=== PATIENT | male | born 1955 | race Caucasian/White ===

== ENCOUNTER 2020-05-05 11:11 | Emergency (ER) | payer BC ==
[2020-05-05] MEDS ORDERED: Ketorolac 30 MG/ML SDV IVPUSH ONE (11:37)
[2020-05-05] MEDS ORDERED: Ondansetron 4 MG/2 ML SDV IVPUSH ONE (11:37)
[2020-05-05] MEDS ORDERED: HYDROmorphone 0.5 MG/0.5 ML Syringe IVPUSH ONE (11:37)
[2020-05-05] MEDS ORDERED: Sodium Chloride 0.9% 10 ML Syringe FLUSH PRN (11:38)
[2020-05-05] MEDS ORDERED: Sodium Chloride 0.9% 1,000 ML IV SCH (11:45)
--- NOTE | 2020-05-05 11:59 | EDM.PDOC ---
ED HPI GENERAL MEDICAL PROBLEM - General Chief Complaint: Flank Pain Stated Complaint: KIDNEY STONE Time Seen by Provider: 05/05/20 11:22 Source of Information: Reports: Patient History Limitations: Reports: No Limitations - History of Present Illness INITIAL COMMENTS - FREE TEXT/NARRATIVE: Patient is a 65-year-old male who presents to the emergency department with complaints of right-sided groin pain and hematuria. He states symptoms began on Monday with right flank pain. He has been managing his symptoms over the weekend, however today they have worsened significantly. He developed blood in his urine yesterday. Patient has a history of kidney stones and states this would be his 18th stone. He has had them analyzed in the past and been told they are made of calcium oxalate. He has been able to pass a number of them on his own, however has also required lithotripsy in the past. His urologist was Dr. Sexton, however states his last lithotripsy was done at [facility] in [place]. He denies any fever, chills, or diarrhea. He has had some nausea and vomiting this morning. States that this does feel like his typical kidney stone, however pain is much more severe. Right Lower Groin Pain Score (Numeric/FACES): 9 - Related Data Allergies Allergy/AdvReac Type Severity Reaction Status Date / Time Penicillins Allergy Severe Rash Verified 05/05/20 11:25 Home Meds: Home Meds Aspirin [Kwame Chewable] 81 mg PO 08/31/14 [History] Acetaminophen/oxyCODONE [Percocet 325-5 MG] 1 - 2 tab PO Q4HR PRN #20 tab 05/05/20 [Rx] Allopurinol [Zyloprim] 300 mg PO DAILY 05/05/20 [History] Ondansetron [Zofran ODT] 4 mg PO Q6H PRN #10 tab.dis 05/05/20 [Rx] Rosuvastatin Calcium [Crestor] 0 mg PO DAILY 05/05/20 [History] Past Medical History Cardiovascular History: Reports: [place] Other Cardiovascular History: abblation Respiratory History: Reports: Bronchitis, Recurrent, Pneumonia, Recurrent Other Respiratory History: 50% lung capacity Genitourinary History: Reports: Renal Calculus Musculoskeletal History: Reports: Back Pain, Chronic, Gout Endocrine/Metabolic History: Reports: Other (See Below) Other Endocrine/Metabolic History: borderline Social & Family History - Tobacco Use Smoking Status *Q: Never Smoker - Caffeine Use Caffeine Use: Reports: Coffee - Recreational Drug Use Recreational Drug Use: No ED ROS GENERAL - Review of Systems Review Of Systems: See Below Constitutional: Reports: No Symptoms. Denies: Fever, Chills, Weakness HEENT: Reports: No Symptoms Respiratory: Reports: No Symptoms Cardiovascular: Reports: No Symptoms Endocrine: Reports: No Symptoms GI/Abdominal: Reports: Nausea, Vomiting. Denies: Abdominal Pain, Diarrhea : Reports: No Symptoms, Flank Pain, Hematuria, Other (Right groin pain) Musculoskeletal: Reports: No Symptoms Skin: Reports: No Symptoms Neurological: Reports: No Symptoms Psychiatric: Reports: No Symptoms Hematologic/Lymphatic: Reports: No Symptoms Immunologic: Reports: No Symptoms ED EXAM, RENAL/ - Physical Exam Exam: See Below Exam Limited By: No Limitations General Appearance: Alert, WD/WN, Mild Distress Respiratory/Chest: No Respiratory Distress, Lungs Clear, Normal Breath Sounds, No Accessory Muscle Use, Chest Non-Tender Cardiovascular: Normal Peripheral Pulses, Regular Rate, Rhythm, No Edema, No Gallop, No JVD, No Murmur, No Rub Back Exam: Normal Inspection, Full Range of Motion, CVA Tenderness (R) Neurological: Alert, Oriented, CN II-XII Intact, Normal Cognition, Normal Gait, Normal Reflexes, No Motor/Sensory Deficits Psychiatric: Normal Affect, Normal Mood Skin Exam: Warm, Dry, Intact, Normal Color, No Rash Course - Vital Signs Last Recorded V/S: Last Vital Signs Temp 97.5 F 05/05/20 13:18 Pulse 74 05/05/20 13:18 Resp 16 05/05/20 13:18 BP 154/89 H 05/05/20 13:18 Pulse Ox 97 05/05/20 13:18 - Orders/Labs/Meds Orders: Active Orders 24 hr Category Date Time Status Peripheral IV Care [RC] . DIRECTED Care 05/05/20 11:39 Active Peripheral IV Insertion Adult [OM.PC] Stat Oth 05/05/20 11:38 Ordered Labs: Laboratory Tests 05/05/20 05/05/20 05/05/20 Range/Units 11:42 11:42 11:45 WBC 9.07 (4.23-9.07) K/mm3 RBC 5.13 (4.63-6.08) M/mm3 Hgb 16.0 (13.7-17.5) gm/dl Hct 48.9 (40.1-51.0) % MCV 95.3 H (79.0-92.2) fl MCH 31.2 (25.7-32.2) pg MCHC 32.7 (32.2-35.5) g/dl RDW Std Deviation 47.3 H (35.1-43.9) fL Plt Count 300 (163-337) K/mm3 MPV 10.0 (9.4-12.3) fl Neut % (Auto) 59.8 (34.0-67.9) % Lymph % (Auto) 24.4 (21.8-53.1) % [place] % (Auto) 11.7 (5.3-12.2) % Eos % (Auto) 3.4 (0.8-7.0) Baso % (Auto) 0.6 (0.1-1.2) % Neut # (Auto) 5.43 H (1.78-5.38) K/mm3 Lymph # (Auto) 2.21 (1.32-3.57) K/mm3 [place] # (Auto) 1.06 H (0.30-0.82) K/mm3 Eos # (Auto) 0.31 (0.04-0.54) K/mm3 Baso # (Auto) 0.05 (0.01-0.08) K/mm3 Sodium 141 (136-145) mEq/L Potassium 4.2 (3.5-5.1) mEq/L Chloride 104 (98-107) mEq/L Carbon Dioxide 27 (21-32) mEq/L Anion Gap 14.2 (5-15) BUN 12 (7-18) mg/dL Creatinine 1.0 (0.7-1.3) mg/dL Est Cr Clr Drug Dosing 82.99 mL/min Estimated GFR (MDRD) > 60 (>60) mL/min BUN/Creatinine Ratio 12.0 L (14-18) Glucose 102 (80-115) mg/dL Calcium 9.1 (8.5-10.1) mg/dL Total Bilirubin 0.7 (0.2-1.0) mg/dL AST 25 (15-37) U/L ALT 35 (16-63) U/L Alkaline Phosphatase 62 (46-116) U/L Total Protein 7.8 (6.4-8.2) g/dl Albumin 4.1 (3.4-5.0) g/dl Globulin 3.7 gm/dL Albumin/Globulin Ratio 1.1 (1-2) Urine Color Yellow (Yellow) Urine Appearance Clear (Clear) Urine pH 7.5 (5.0-8.0) Ur Specific [place] 1.025 (1.005-1.030) Urine Protein 1+ H (Negative) Urine Glucose (UA) Negative (Negative) Urine Ketones Negative (Negative) Urine Occult Blood 3+ H (Negative) Urine Nitrite Negative (Negative) Urine Bilirubin Negative (Negative) Urine Urobilinogen 0.2 (0.2-1.0) Ur Leukocyte Esterase Negative (Negative) Urine RBC 40-50 H (0-5) /hpf Urine WBC 0-5 (0-5) /hpf Ur Squamous Epith Cells 0-5 (0-5) /hpf Urine Bacteria Few (FEW) /hpf Urine Mucus Moderate H (FEW) /hpf Meds: Medications Discontinued Medications Generic Name Dose Route Start Last Admin Trade Name Freq PRN Reason Stop Dose Admin Hydromorphone HCl 0.5 mg 05/05/20 11:37 05/05/20 11:49 Dilaudid IVPUSH 05/05/20 11:38 0.5 mg ONETIME ONE Administration Sodium Chloride 1,000 mls @ 999 mls/hr 05/05/20 11:45 05/05/20 11:53 Normal Saline IV 999 mls/hr ASDIRECTED ALEKSANDRA Administration Ketorolac Tromethamine 30 mg 05/05/20 11:37 05/05/20 11:46 Toradol IVPUSH 05/05/20 11:38 30 mg ONETIME ONE Administration Ondansetron HCl 4 mg 05/05/20 11:37 05/05/20 11:45 Zofran IVPUSH 05/05/20 11:38 4 mg ONETIME ONE Administration Oxycodone/Acetaminophen 2 tab 05/05/20 12:55 05/05/20 13:09 Percocet 325-5 Mg PO 05/05/20 12:56 2 tab ONETIME ONE Administration Sodium Chloride 10 ml 05/05/20 11:38 05/05/20 11:55 Saline Flush FLUSH 10 ml ASDIRECTED PRN Administration Keep Vein Open - Re-Assessments/Exams Free Text/Narrative Re-Assessment/Exam: 05/05/20 12:55 Hematology was grossly unremarkable. Urinalysis showed 3+ occult blood, 40-50 RBCs, and moderate mucus. CT scan of the abdomen pelvis shows a 5.7 mm stone located at the UPJ causing dilated right renal pelvis. Patient is feeling better after the medications given. I will give him 2 Percocet now. A prescription will be written for Percocet and Zofran. He is going to call his urologist, Dr. Sexton this afternoon to get scheduled for an appointment with him. Recommended if his symptoms worsen, should return to the ER. Discharge instructions as documented. Departure - Departure Time of Disposition: 12:55 Disposition: Home, Self-Care 01 Condition: Good Clinical Impression: Ureteric stone - Discharge Information *PRESCRIPTION DRUG MONITORING PROGRAM REVIEWED*: Yes *COPY OF PRESCRIPTION DRUG MONITORING REPORT IN PATIENT PAZ: No Prescriptions: Acetaminophen/oxyCODONE [Percocet 325-5 MG] 1 - 2 tab PO Q4HR PRN #20 tab PRN Reason: Pain Ondansetron [Zofran ODT] 4 mg PO Q6H PRN #10 tab.dis PRN Reason: Nausea/Vomiting Instructions: Kidney Stones, [id number] Referrals: yT Ponce MD [Primary Care Provider] - Dwain Sexton MD [Physician] - Forms: ED Department Discharge Additional Instructions: You were seen in the emergency department today for 4-day history of right-sided flank and groin pain, as well as blood in your urine. Your work-up included blood work, urinalysis, and a CT scan your abdomen pelvis. Your blood work was found to be normal. As be expected, there was blood found in your urine however there was no signs of infection. CT scan does show a 5.7 mm stone located directly below the right kidney. While in the ER you received a liter of IV fluids, Zofran for nausea, and Dilaudid for pain. This did improve your pain and nausea. On discharge, he did receive 2 Percocets for pain. A prescription for Percocet and Zofran has been sent to [facility] in [place]. Recommend that you use [id number] Tylenol and ibuprofen. For pain not relieved by these, you may use Percocet. Do not drive or work for 12 hours after taking this medication as it can be sedating. Recommend that you call this afternoon t o set up a follow-up appointment with your urologist, Dr. Samantha Arroyo. Number to schedule with him as listed below. If you should experience any worsening symptoms, please not hesitate to return to the ER. Sepsis Event Note (ED) - Evaluation Sepsis Screening Result: No Definite Risk - My Orders Last 24 Hours: My Active Orders 05/05/20 11:38 Peripheral IV Insertion Adult [OM.PC] Stat 05/05/20 11:39 Peripheral IV Care [RC] . DIRECTED - Assessment/Plan Last 24 Hours: My Active Orders 05/05/20 11:38 Peripheral IV Insertion Adult [OM.PC] Stat 05/05/20 11:39 Peripheral IV Care [RC] . DIRECTED
--- NOTE | 2020-05-05 12:44 | CT ---
CT abdomen and pelvis Technique: Multiple axial sections were obtained from above the dome of the diaphragm inferiorly through the pubic symphysis. Intravenous contrast and oral contrast not utilized. Comparison: Prior CT abdomen and pelvis exam of 09/01/14. Findings: Right renal pelvis slightly dilated which is believed to be caused by a 5.7 mm stone located at the UPJ. Both kidneys show multiple nonobstructing calculi. Parapelvic cysts are noted within the left kidney. No other ureteral calculi are seen. Other findings: Extra pleural fat seen within the left lung base. Mild areas of scarring seen within both lung bases. Noncontrast appearance of the liver shows no focal abnormality. Spleen is normal. Gallbladder contains no calcified gallstones. Pancreas is unremarkable. Aorta shows no aneurysm. No retroperitoneal adenopathy or mesenteric abnormalities are seen. No pelvic mass or adenopathy is seen. No free fluid or inflammatory change is appreciated. Appendix is seen which is normal in size. Bone window settings were reviewed which shows scoliosis and mild scattered degenerative change throughout the spine. Impression: 1. 5.7 mm stone located at the UPJ causing dilated right renal pelvis. 2. Multiple nonobstructing calculi within both kidneys. 3. Other nonacute findings as noted above. Diagnostic code #3 Study was dictated in MDT
[2020-05-05] MEDS ORDERED: Acetaminophen/oxyCODONE 325-5 MG Tab PO ONE (12:55)
== END 2020-05-05 13:20 | disposition home or self-care (01) ==
LOC: JD.ED 11:11
DX: N20.1 Calculus of ureter (principal); Z87.442 Personal history of urinary calculi; M10.9 Gout, unspecified; Z88.0 Allergy status to penicillin; Z79.899 Other long term (current) drug therapy
CPT/HCPCS: 36415; 74176; 80053; 81001; 85025; 96361; 96374; 96375; 99284; A9270; J1170; J1885; J2405; J7030; 99283

== ENCOUNTER 2020-07-20 07:37 | Emergency (ER) | payer BC ==
[2020-07-20] MEDS ORDERED: Sodium Chloride 0.9% 10 ML Syringe FLUSH PRN (07:52)
[2020-07-20] MEDS ORDERED: Ondansetron 4 MG/2 ML SDV IVPUSH ONE (07:52)
[2020-07-20] MEDS ORDERED: Ketorolac 30 MG/ML SDV IVPUSH ONE (07:52)
[2020-07-20] MEDS ORDERED: HYDROmorphone 1 MG/ML Syringe IVPUSH ONE (07:53)
[2020-07-20] MEDS ORDERED: Sodium Chloride 0.9% 1,000 ML IV SCH (08:00)
--- NOTE | 2020-07-20 08:51 | EDM.PDOC ---
ED HPI GENERAL MEDICAL PROBLEM - General Chief Complaint: Flank Pain Stated Complaint: KIDNEY STONE Time Seen by Provider: 07/20/20 07:47 Source of Information: Reports: Patient History Limitations: Reports: No Limitations - History of Present Illness INITIAL COMMENTS - FREE TEXT/NARRATIVE: The patient presents with right flank pain. This started about 3am. He has a history of kidney stones and he sees Dr Sexton. He had a KUB done on 07/13 and it did show a stone. He has passed a few since April. He has some blood in his urine. He has nausea and vomiting. He has no fever, chills, cough, congestion, runny nose, chest pain or shortness of breath. Onset: Sudden Duration: Hour(s): (3am) Location: Reports: Abdomen, Back Quality: Reports: Sharp Severity: Severe Improves with: Reports: None Worsens with: Reports: None Associated Symptoms: Reports: Nausea/Vomiting. 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 - Related Data Allergies Allergy/AdvReac Type Severity Reaction Status Date / Time Penicillins Allergy Severe Rash Verified 05/05/20 11:25 Home Meds: Home Meds Aspirin [Kwame Chewable] 81 mg PO DAILY 08/31/14 [History] Acetaminophen/oxyCODONE [Percocet 325-5 MG] 1 - 2 tab PO Q4HR PRN #20 tab 05/05/20 [Rx] Allopurinol [Zyloprim] 300 mg PO DAILY 05/05/20 [History] Rosuvastatin Calcium [Crestor] 40 mg PO DAILY 05/05/20 [History] Ondansetron [Zofran ODT] 4 mg PO Q6H PRN #20 tab.dis 07/20/20 [Rx] oxyCODONE HCl/Acetaminophen [Percocet 5-325 mg Tablet] 1 - 2 each PO Q6HR PRN #20 tablet 07/20/20 [Rx] Past Medical History HEENT History: Reports: Impaired Vision Other HEENT History: wears glasses Cardiovascular History: Reports: Hypertension, [place] Other Cardiovascular History: abblation Respiratory History: Reports: Bronchitis, Recurrent, Pneumonia, Recurrent Other Respiratory History: 50% lung capacity Genitourinary History: Reports: Renal Calculus Musculoskeletal History: Reports: Back Pain, Chronic, Gout Endocrine/Metabolic History: Reports: Other (See Below) Other Endocrine/Metabolic History: borderline Social & Family History - Family History Family Medical History: Noncontributory - Tobacco Use Smoking Status *Q: Never Smoker - Caffeine Use Caffeine Use: Reports: Coffee ED ROS GENERAL - Review of Systems Review Of Systems: See Below Constitutional: Reports: No Symptoms HEENT: Reports: No Symptoms Respiratory: Reports: No Symptoms Cardiovascular: Reports: No Symptoms Endocrine: Reports: No Symptoms GI/Abdominal: Reports: Abdominal Pain, Nausea, Vomiting. Denies: Diarrhea : Reports: Flank Pain, Hematuria Musculoskeletal: Reports: Back Pain Skin: Reports: No Symptoms ED EXAM, RENAL/ - Physical Exam Exam: See Below Exam Limited By: No Limitations General Appearance: Alert, Mild Distress Ears: Normal External Exam Nose: Normal Inspection Head: Atraumatic, Normocephalic Neck: Normal Inspection Respiratory/Chest: No Respiratory Distress, Lungs Clear, Normal Breath Sounds Cardiovascular: Regular Rate, Rhythm, No Edema, No Murmur GI/Abdominal: Soft, Non-Tender, No Organomegaly, No Mass Back Exam: No: CVA Tenderness (R) Extremities: Normal Inspection Course - Vital Signs Last Recorded V/S: Last Vital Signs Temp 97.2 F 07/20/20 07:46 Pulse 80 07/20/20 07:46 Resp 20 07/20/20 07:46 BP 169/93 H 07/20/20 07:46 Pulse Ox 98 07/20/20 07:46 - Orders/Labs/Meds Orders: Active Orders 24 hr Category Date Time Status Peripheral IV Care [RC] . DIRECTED Care 07/20/20 07:52 Active Sodium Chloride 0.9% [Normal Saline] 1,000 ml Med 07/20/20 08:00 Active IV ASDIRECTED Sodium Chloride 0.9% [Saline Flush] Med 07/20/20 07:52 Active 10 ml FLUSH ASDIRECTED PRN ED Antiemetic Medication Reflex [OM.PC] Stat Oth 07/20/20 07:52 Ordered Peripheral IV Insertion Adult [OM.PC] Stat Oth 07/20/20 07:52 Ordered Medication Orders Sodium Chloride (Normal Saline) 1,000 mls @ 125 mls/hr IV ASDIRECTED ALEKSANDRA Last Admin: 07/20/20 08:00 Dose: 125 mls/hr Documented by: ABIGAIL Sodium Chloride (Saline Flush) 10 ml FLUSH ASDIRECTED PRN PRN Reason: Keep Vein Open Last Admin: 07/20/20 08:01 Dose: 10 ml Documented by: ABIGAIL Labs: Laboratory Tests 07/20/20 07/20/20 07/20/20 Range/Units 07:55 07:55 08:48 WBC 13.33 H (4.23-9.07) K/mm3 RBC 4.95 (4.63-6.08) M/mm3 Hgb 15.5 (13.7-17.5) gm/dl Hct 47.0 (40.1-51.0) % MCV 94.9 H (79.0-92.2) fl MCH 31.3 (25.7-32.2) pg MCHC 33.0 (32.2-35.5) g/dl RDW Std Deviation 46.4 H (35.1-43.9) fL Plt Count 296 (163-337) K/mm3 MPV 10.0 (9.4-12.3) fl Neut % (Auto) 82.2 H (34.0-67.9) % Lymph % (Auto) 8.4 L (21.8-53.1) % [place] % (Auto) 8.3 (5.3-12.2) % Eos % (Auto) 0.7 L (0.8-7.0) Baso % (Auto) 0.2 (0.1-1.2) % Neut # (Auto) 10.96 H (1.78-5.38) K/mm3 Lymph # (Auto) 1.12 L (1.32-3.57) K/mm3 [place] # (Auto) 1.10 H (0.30-0.82) K/mm3 Eos # (Auto) 0.09 (0.04-0.54) K/mm3 Baso # (Auto) 0.03 (0.01-0.08) K/mm3 Manual Slide Review Normal smear Sodium 139 (136-145) mEq/L Potassium 3.6 (3.5-5.1) mEq/L Chloride 104 (98-107) mEq/L Carbon Dioxide 24 (21-32) mEq/L Anion Gap 14.6 (5-15) BUN 18 (7-18) mg/dL Creatinine 1.3 (0.7-1.3) mg/dL Est Cr Clr Drug Dosing 63.84 mL/min Estimated GFR (MDRD) 56 (>60) mL/min BUN/Creatinine Ratio 13.8 L (14-18) Glucose 161 H (80-115) mg/dL Calcium 9.1 (8.5-10.1) mg/dL Total Bilirubin 0.7 (0.2-1.0) mg/dL AST 21 (15-37) U/L ALT 30 (16-63) U/L Alkaline Phosphatase 56 (46-116) U/L Total Protein 7.7 (6.4-8.2) g/dl Albumin 3.7 (3.4-5.0) g/dl Globulin 4.0 gm/dL Albumin/Globulin Ratio 0.9 L (1-2) Lipase 78 (73-393) U/L Urine Color Yellow (Yellow) Urine Appearance Clear (Clear) Urine pH 6.0 (5.0-8.0) Ur Specific [place] > or = 1.030 (1.005-1.030) Urine Protein 1+ H (Negative) Urine Glucose (UA) Negative (Negative) Urine Ketones 3+ H (Negative) Urine Occult Blood 2+ H (Negative) Urine Nitrite Negative (Negative) Urine Bilirubin 1+ H (Negative) Urine Urobilinogen 0.2 (0.2-1.0) Ur Leukocyte Esterase Negative (Negative) Urine RBC 40-50 H (0-5) /hpf Urine WBC 0-5 (0-5) /hpf Ur Squamous Epith Cells 0-5 (0-5) /hpf Urine Bacteria Few (FEW) /hpf Urine Mucus Rare (FEW) /hpf Meds: Medications Generic Name Dose Route Start Last Admin Trade Name Freq PRN Reason Stop Dose Admin Sodium Chloride 1,000 mls @ 125 mls/hr 07/20/20 08:00 07/20/20 08:00 Normal Saline IV 125 mls/hr ASDIRECTED ALEKSANDRA Administration Sodium Chloride 10 ml 07/20/20 07:52 07/20/20 08:01 Saline Flush FLUSH 10 ml ASDIRECTED PRN Administration Keep Vein Open Discontinued Medications Generic Name Dose Route Start Last Admin Trade Name Freq PRN Reason Stop Dose Admin Hydromorphone HCl 1 mg 07/20/20 07:53 07/20/20 08:00 Dilaudid IVPUSH 07/20/20 07:54 1 mg ONETIME ONE Administration Ketorolac Tromethamine 30 mg 07/20/20 07:52 07/20/20 08:01 Toradol IVPUSH 07/20/20 07:53 30 mg ONETIME ONE Administration Ondansetron HCl 4 mg 07/20/20 07:52 07/20/20 08:00 Zofran IVPUSH 07/20/20 07:53 4 mg ONETIME ONE Administration - Re-Assessments/Exams Free Text/Narrative Re-Assessment/Exam: 07/20/20 08:50 I ordered an IV NS at 125mL/hr, zofran 4mg IV, toradol 30mg IV, dilaudid 1mg IV, labs, UA and a KUB. 07/20/20 10:16 His WBC was elevated at 13.3. His CMP looks good. His glucose is elevated at 161. His lipase is negative. His UA shows blood but no UTI. I did an x-ray and now stone was seen so I ordered a CT and it shows obstructing calculus within the distal right ureter close to the UVJ. This stone measures about 7mm. Multiple small nonobstructing calculi within both kidneys. Other findings which appear nonacute. He is feeling much better. His has been texting Dr Sexton's nurse and I sent the films to him. He is on flomax and I will get him some percocet and flomax. Departure - Departure Time of Disposition: 10:30 Disposition: Home, Self-Care 01 Condition: Good Clinical Impression: Ureteric stone, Kidney stone on right side, Ureteric colic - Discharge Information *PRESCRIPTION DRUG MONITORING PROGRAM REVIEWED*: No *COPY OF PRESCRIPTION DRUG MONITORING REPORT IN PATIENT PAZ: No Prescriptions: oxyCODONE HCl/Acetaminophen [Percocet 5-325 mg Tablet] 1 - 2 each PO Q6HR PRN #20 tablet PRN Reason: Pain Ondansetron [Zofran ODT] 4 mg PO Q6H PRN #20 tab.dis PRN Reason: Nausea\vomiting Referrals: Ty Ponce MD [Primary Care Provider] - Anabella Sexton MD [Resident] - 1 Week Forms: ED Department Discharge Additional Instructions: Drink plenty of fluids. Take motrin or tylenol for pain. If that does not help, try the percocet. Take zofran as needed for nausea and vomiting. Take flomax daily. Follow up with Dr Sexton. Please return if you are worse. Sepsis Event Note (ED) - Evaluation Sepsis Screening Result: No Definite Risk - Focused Exam Vital Signs: Vital Signs Temp Pulse Resp BP Pulse Ox 07/20/20 07:46 97.2 F 80 20 169/93 H 98 - My Orders Last 24 Hours: My Active Orders 07/20/20 07:52 Peripheral IV Care [RC] . DIRECTED Sodium Chloride 0.9% [Saline Flush] 10 ml FLUSH ASDIRECTED PRN ED Antiemetic Medication Reflex [OM.PC] Stat Peripheral IV Insertion Adult [OM.PC] Stat 07/20/20 08:00 Sodium Chloride 0.9% [Normal Saline] 1,000 ml IV ASDIRECTED - Assessment/Plan Last 24 Hours: My Active Orders 07/20/20 07:52 Peripheral IV Care [RC] . DIRECTED Sodium Chloride 0.9% [Saline Flush] 10 ml FLUSH ASDIRECTED PRN ED Antiemetic Medication Reflex [OM.PC] Stat Peripheral IV Insertion Adult [OM.PC] Stat 07/20/20 08:00 Sodium Chloride 0.9% [Normal Saline] 1,000 ml IV ASDIRECTED
--- NOTE | 2020-07-20 09:37 | CR ---
Abdomen: Supine view of the abdomen was obtained. Comparison: No prior abdominal x-ray. Calcifications are seen within the kidneys compatible with nonobstructing calculi. Slight degenerative change is noted within the spine. Joint space narrowing is seen within the right hip. Calcifications are noted within the pelvis which are felt compatible with phleboliths. Bowel gas pattern appears normal. Impression: 1. Numerous renal calculi are seen. 2. Other findings as noted above. Nothing acute is appreciated. Diagnostic code #2 This report was dictated in MDT
--- NOTE | 2020-07-20 10:01 | CT ---
CT abdomen and pelvis Technique: Multiple axial sections were obtained from above the dome of the diaphragm inferiorly through the pubic symphysis. Intravenous and oral contrast not utilized. Study has been performed as a ureteral stone protocol. Findings: Dilated right renal pelvis and ureter are seen. These findings are caused by an obstructing distal right ureteral stone measuring 7 mm. This occurs close to the UVJ. No left-sided calculi are seen within the ureters. Numerous nonobstructing calculi are seen within both kidneys. Visualized lung bases shows atelectasis and fatty pleural thickening posteriorly. Liver shows a small low-density lesion compatible with cyst within the right lobe which measures about 1.2 cm in size. No additional abnormality is appreciated within the liver. Spleen appears within normal limits. Adrenal glands show no nodule. Gallbladder contains no calcified gallstones. Pancreas is normal. Aorta shows no aneurysm. No retroperitoneal adenopathy or mesenteric abnormalities are seen. No pelvic mass or adenopathy is seen. No free fluid is seen. Appendix is seen and appears to be normal in size. Bone window settings shows scattered degenerative change within the spine. Impression: 1. Obstructing calculus within the distal right ureter close to the UVJ. This stone measures about 7 mm. 2. Multiple small nonobstructing calculi within both kidneys. 3. Other findings which appear nonacute as described above. Diagnostic code #3 This report was dictated in MDT
== END 2020-07-20 10:55 | disposition home or self-care (01) ==
LOC: JD.ED 07:37
DX: N20.2 Calculus of kidney with calculus of ureter (principal); I10 Essential (primary) hypertension; I25.2 Old myocardial infarction; Z88.0 Allergy status to penicillin; Z79.82 Long term (current) use of aspirin; Z79.899 Other long term (current) drug therapy
CPT/HCPCS: 36415; 74018; 74176; 80053; 81001; 83690; 85025; 96361; 96374; 96375; 99284; J1170; J1885; J2405; J7030; 99283

== ENCOUNTER 2020-07-21 21:22 | Emergency (ER) | payer BC ==
[2020-07-21] MEDS ORDERED: HYDROmorphone 1 MG/ML Syringe IM ONE (21:54)
--- NOTE | 2020-07-21 22:03 | EDM.PDOC ---
ED HPI GENERAL MEDICAL PROBLEM - General Chief Complaint: Genitourinary Problem Stated Complaint: kidney stone Time Seen by Provider: 07/21/20 21:47 Source of Information: Reports: Patient, Old Records, RN Notes Reviewed History Limitations: Reports: No Limitations - History of Present Illness INITIAL COMMENTS - FREE TEXT/NARRATIVE: Patient is a 65-year-old male who presents to the ED for the evaluation of his pain with a currently diagnosed kidney stone. Patient notes he was seen here in this ER early in the morning on July 20 and was found to have a 7 mm kidney stone right at the distal right UVJ. Patient was sent home with some pain medications and nausea medications and he scheduled himself an appoint with Dr. Sexton for removal. He has had kidney stones in the past, he states he has not had any sort of pain over the last day or 2, but tonight the pain began to get intense, so he took 2 tablets of Percocet at 8 PM, and states that this is not helped much so he comes to the ER for pain management. Patient denies any other sick-like symptoms fever/chills, cough/shortness of breath, nausea/vomiting/diarrhea. Patient notes that he has been self quarantining at home, as he states that he did have a known exposure to someone who had COVID- 19, but he has been asymptomatic at this time. He took a COVID test last week; and was negative, but Dr. Sexton states that this is not current enough for management on his upcoming appointment 2 days from now on July 23. Right Flank Pain Score (Numeric/FACES): 8 - Related Data Allergies Allergy/AdvReac Type Severity Reaction Status Date / Time Penicillins Allergy Severe Rash Verified 07/21/20 21:32 Home Meds: Home Meds Aspirin [Kwame Chewable] 81 mg PO DAILY 08/31/14 [History] Acetaminophen/oxyCODONE [Percocet 325-5 MG] 1 - 2 tab PO Q4HR PRN #20 tab 05/05/20 [Rx] Allopurinol [Zyloprim] 300 mg PO DAILY 05/05/20 [History] Rosuvastatin Calcium [Crestor] 40 mg PO DAILY 05/05/20 [History] Ondansetron [Zofran ODT] 4 mg PO Q6H PRN #20 tab.dis 07/20/20 [Rx] oxyCODONE HCl/Acetaminophen [Percocet 5-325 mg Tablet] 1 - 2 each PO Q6HR PRN #20 tablet 07/20/20 [Rx] Past Medical History HEENT History: Reports: Impaired Vision Other HEENT History: wears glasses Cardiovascular History: Reports: Hypertension, [place] Other Cardiovascular History: abblation Respiratory History: Reports: Bronchitis, Recurrent, Pneumonia, Recurrent Other Respiratory History: 50% lung capacity Genitourinary History: Reports: Renal Calculus Musculoskeletal History: Reports: Back Pain, Chronic, Gout Endocrine/Metabolic History: Reports: Other (See Below) Other Endocrine/Metabolic History: borderline Social & Family History - Family History Family Medical History: Noncontributory - Tobacco Use Smoking Status *Q: Never Smoker Second Hand Smoke Exposure: No - Caffeine Use Caffeine Use: Reports: Coffee - Recreational Drug Use Recreational Drug Use: No ED ROS GENERAL - Review of Systems Review Of Systems: Comprehensive ROS is negative, except as noted in HPI. ED EXAM, RENAL/ - Physical Exam Exam: See Below Exam Limited By: No Limitations General Appearance: Alert, WD/WN, No Apparent Distress Respiratory/Chest: No Respiratory Distress, Lungs Clear, Normal Breath Sounds, No Accessory Muscle Use, Chest Non-Tender Cardiovascular: Normal Peripheral Pulses, Regular Rate, Rhythm, No Murmur Back Exam: No: CVA Tenderness (L), CVA Tenderness (R) Neurological: Alert, Oriented, Normal Cognition, No Motor/Sensory Deficits Psychiatric: Normal Affect, Normal Mood Skin Exam: Warm, Dry, Intact, Normal Color, No Rash Course - Vital Signs Last Recorded V/S: Last Vital Signs Temp 97.6 F 07/21/20 21:29 Pulse 90 07/21/20 21:29 Resp 24 H 07/21/20 21:29 BP 179/98 H 07/21/20 21:29 Pulse Ox 94 L 07/21/20 21:29 - Orders/Labs/Meds Labs: Laboratory Tests 07/21/20 Range/Units 22:02 SARS-CoV-2 RNA (ROSEANNA) Negative (NEGATIVE) Meds: Medications Discontinued Medications Generic Name Dose Route Start Last Admin Trade Name Freq PRN Reason Stop Dose Admin Hydromorphone HCl 1 mg 07/21/20 21:54 07/21/20 22:06 Dilaudid IM 09/29/20 21:55 1 mg ONETIME ONE Administration - Re-Assessments/Exams Free Text/Narrative Re-Assessment/Exam: 07/21/20 22:02 Patient presents to the ER essentially for pain management. At this time since he was referred to urology through this ER for surgical removal of the stone. We have ordered a 1 hour coronavirus test for evaluation prior to his surgery at this time. Have ordered 1 mg Dilaudid for initial pain management. Departure - Departure Time of Disposition: 22:11 Disposition: Home, Self-Care 01 Condition: Good Clinical Impression: Kidney stone on right side - Discharge Information *PRESCRIPTION DRUG MONITORING PROGRAM REVIEWED*: No *COPY OF PRESCRIPTION DRUG MONITORING REPORT IN PATIENT PAZ: No Instructions: Dietary Guidelines to Help Prevent Kidney Stones Referrals: Ty Ponce MD [Primary Care Provider] - Forms: ED Department Discharge Additional Instructions: You were evaluated in the ER today for your right flank pain. You were found to have a 7mm kidney stone at your last ER visit. Recommend that you increase your oral fluid intake to try to help the stone pass. You have been given a few tablets of pain medication, You may need to take an increased amount of the medications as these were somewhat small in dosage. You may need to take 3-4 tabs Q6H for pain relief. These medications are highly addictive, please take as few as you need to. These medications also may cause constipation, please take a stool softener like MiraLAX while taking these medications. You were tested for COVID-19 at tonight's visit. I will tag your provider in my note, so that they receive a copy of this as well. Please return to the ED if your symptoms change or worsen. Sepsis Event Note (ED) - Evaluation Sepsis Screening Result: No Definite Risk
== END 2020-07-21 23:06 | disposition home or self-care (01) ==
LOC: JD.ED 21:22
DX: N20.0 Calculus of kidney (principal); I10 Essential (primary) hypertension; I25.2 Old myocardial infarction; Z88.0 Allergy status to penicillin; Z79.82 Long term (current) use of aspirin; Z79.899 Other long term (current) drug therapy; Z20.828 Contact with and (suspected) exposure to other viral communicable diseases
CPT/HCPCS: 87635; 96372; 99284; J1170; 99283; U0002

== ENCOUNTER 2021-04-25 20:37 | Emergency (ER) | payer BC ==
[2021-04-25] MEDS ORDERED: Sodium Chloride 0.9% 10 ML Syringe FLUSH PRN (21:25)
[2021-04-25] MEDS ORDERED: Furosemide 20 MG Tab PO ONE (23:16)
--- NOTE | 2021-04-25 23:17 | EDM.PDOC ---
ED HPI GENERAL MEDICAL PROBLEM - General Chief Complaint: Respiratory Problem Stated Complaint: LIGHT HEADED, TROUBLE BREATHING Time Seen by Provider: 04/25/21 20:43 Source of Information: Reports: Patient, Family History Limitations: Reports: No Limitations - History of Present Illness INITIAL COMMENTS - FREE TEXT/NARRATIVE: Patient is a 66-year-old male who is complaining has had increased fatigue with dyspnea on exertion shortness of breath has been ongoing for the past 4 days. Symptoms were worse starting yesterday when he was unable to finish watering his trees due to being exhausted. Patient is also feeling short of breath even at rest and this seems to be worse with exertion. He has had similar symptoms in the past when he was in atrial fibrillation/flutter after which he underwent a cardiac ablation which he was told would solve the problem. He denies any chest tightness or diaphoresis. He has not been feeling nauseous. He does feel that his ankles are somewhat swollen. He denies any bloody or tarry stools. Patient's only recent medical problems have patient states to do with kidney stones. Patient states he has a hard time doing any activity currently secondary to feeling exhausted. Duration: Day(s): (Four), Getting Worse Severity: Moderate Improves with: Reports: Rest Worsens with: Reports: Movement Context: Reports: Activity Associated Symptoms: Reports: No Other Symptoms - Related Data Allergies Allergy/AdvReac Type Severity Reaction Status Date / Time Penicillins Allergy Severe Rash Verified 04/25/21 21:06 Home Meds: Home Meds Aspirin [Kwame Chewable] 81 mg PO DAILY 08/31/14 [History] Allopurinol [Zyloprim] 300 mg PO DAILY 05/05/20 [History] Rosuvastatin Calcium [Crestor] 40 mg PO DAILY 05/05/20 [History] Past Medical History HEENT History: Reports: Impaired Vision Other HEENT History: wears glasses Cardiovascular History: Reports: Hypertension, [place] Other Cardiovascular History: abblation Respiratory History: Reports: Bronchitis, Recurrent, Pneumonia, Recurrent Other Respiratory History: 50% lung capacity Genitourinary History: Reports: Renal Calculus Musculoskeletal History: Reports: Back Pain, Chronic, Gout Endocrine/Metabolic History: Reports: Other (See Below) Other Endocrine/Metabolic History: borderline diabetic - Infectious Disease History Infectious Disease History: Reports: Chicken Pox, Measles, Mumps Social & Family History - Family History Family Medical History: No Pertinent Family History - Tobacco Use Tobacco Use Status *Q: Never Tobacco User Second Hand Smoke Exposure: No - Caffeine Use Caffeine Use: Reports: Coffee - Recreational Drug Use Recreational Drug Use: No ED ROS GENERAL - Review of Systems Review Of Systems: Comprehensive ROS is negative, except as noted in HPI. ED EXAM, GENERAL - Physical Exam Exam: See Below Exam Limited By: No Limitations General Appearance: Alert, No Apparent Distress Head: Normocephalic Neck: Normal Inspection, Supple Respiratory/Chest: No Respiratory Distress, Rales (Very mild rales.). No: Respiratory Distress, Wheezing Cardiovascular: No JVD, Irregularly Irregular GI/Abdominal: Normal Bowel Sounds, Soft Back Exam: Normal Inspection Extremities: Normal Inspection, Pedal Edema (+1 pedal edema) Neurological: Alert, Oriented Psychiatric: Normal Affect, Normal Mood Skin Exam: Warm, Dry, Erythema (Both lower extremities secondary to sunburn.) Lymphatic: No Adenopathy #1 Interpretation Rhythm: A-Flutter [place]: Normal QRS: Normal ST-T: Normal QT: Normal EKG Interpretation Comments: Atrial flutter with heart rate in the 70s. No ST or T wave changes appreciated. Course - Vital Signs Text/Narrative:: Patient's chest x-ray shows perihilar markings increase consistent with bronchitis. His labs were normal except for a BMP which was 349. His D-dimer and cardiac enzymes were negative. I did give patient some Lasix after which he felt his ankles were less swollen though he still feels short of breath at rest. Patient was discussed with Dr. Jimenez who is a hospitalist at [facility] who has accepted him for further evaluation and treatment. Patient will most likely have an echocardiogram and then be cardioverted. He will be seen by dowel setting machine operator who will determine his care. Patient did receive a full aspirin and does take a baby aspirin daily. Last Recorded V/S: Last Vital Signs Temp 98.1 F 04/25/21 21:01 Pulse 78 04/25/21 21:01 Resp 20 04/25/21 21:01 BP 149/85 H 04/25/21 21:01 Pulse Ox 96 04/25/21 21:01 - Orders/Labs/Meds Orders: Active Orders 24 hr Category Date Time Status EKG Documentation Completion [RC] ASDIRECTED Care 04/25/21 22:20 Active Peripheral IV Care [RC] . DIRECTED Care 04/25/21 21:25 Active Chest 2V [CR] Stat Exams 04/25/21 21:25 Taken Sodium Chloride 0.9% [Saline Flush] Med 04/25/21 21:25 Active 10 ml FLUSH ASDIRECTED PRN Peripheral IV Insertion Adult [OM.PC] Routine Oth 04/25/21 21:25 Ordered EKG 12 Lead [EK] Stat Ther 04/25/21 22:19 Ordered Medication Orders Sodium Chloride (Sodium Chloride 0.9% 10 Ml Syringe) 10 ml FLUSH ASDIRECTED PRN PRN Reason: Keep Vein Open Last Admin: 04/25/21 21:38 Dose: 10 ml Documented by: RUPA Labs: Laboratory Tests 04/25/21 04/25/21 04/25/21 Range/Units 22:05 22:05 22:05 WBC 9.23 H (4.23-9.07) K/mm3 RBC 4.54 L (4.63-6.08) M/mm3 Hgb 14.4 (13.7-17.5) gm/dl Hct 44.0 (40.1-51.0) % MCV 96.9 H (79.0-92.2) fl MCH 31.7 (25.7-32.2) pg MCHC 32.7 (32.2-35.5) g/dl RDW Std Deviation 49.6 H (35.1-43.9) fL Plt Count 221 D (163-337) K/mm3 MPV 10.3 (9.4-12.3) fl Neutrophils % (Manual) 54 (40-60) % Band Neutrophils % 4 (0-10) % Lymphocytes % (Manual) 17 L (20-40) % Atypical Lymphs % 8 % Monocytes % (Manual) 8 (2-10) % Eosinophils % (Manual) 9 H (0.8-7.0) % Basophils % (Manual) 0 L (0.2-1.2) Platelet Estimate Adequate Plt Morphology Comment Normal Anisocytosis 2+ moderate Macrocytosis 2+ moderate RBC Morph Comment Abnormal D-Dimer, Quantitative 0.26 (0.19-0.50) mg/L Sodium 143 (136-145) mEq/L Potassium 4.1 (3.5-5.1) mEq/L Chloride 107 (98-107) mEq/L Carbon Dioxide 25 (21-32) mEq/L Anion Gap 15.1 H (5-15) BUN 14 (7-18) mg/dL Creatinine 1.0 (0.7-1.3) mg/dL Est Cr Clr Drug Dosing 81.91 mL/min Estimated GFR (MDRD) > 60 (>60) mL/min BUN/Creatinine Ratio 14.0 (14-18) Glucose 98 (70-99) mg/dL Calcium 8.5 (8.5-10.1) mg/dL Total Bilirubin 0.4 (0.2-1.0) mg/dL AST 18 (15-37) U/L ALT 33 (16-63) U/L Alkaline Phosphatase 66 (46-116) U/L CK-MB (CK-2) 4.1 H (0-3.6) ng/ml Troponin I < 0.017 (0.00-0.056) ng/mL NT-Pro-B Natriuret Pep (0-125) pg/mL Total Protein 6.7 (6.4-8.2) g/dl Albumin 3.4 (3.4-5.0) g/dl Globulin 3.3 gm/dL Albumin/Globulin Ratio 1.0 (1-2) 04/25/21 Range/Units 22:05 WBC (4.23-9.07) K/mm3 RBC (4.63-6.08) M/mm3 Hgb (13.7-17.5) gm/dl Hct (40.1-51.0) % MCV (79.0-92.2) fl MCH (25.7-32.2) pg MCHC (32.2-35.5) g/dl RDW Std Deviation (35.1-43.9) fL Plt Count (163-337) K/mm3 MPV (9.4-12.3) fl Neutrophils % (Manual) (40-60) % Band Neutrophils % (0-10) % Lymphocytes % (Manual) (20-40) % Atypical Lymphs % % Monocytes % (Manual) (2-10) % Eosinophils % (Manual) (0.8-7.0) % Basophils % (Manual) (0.2-1.2) Platelet Estimate Plt Morphology Comment Anisocytosis Macrocytosis RBC Morph Comment D-Dimer, Quantitative (0.19-0.50) mg/L Sodium (136-145) mEq/L Potassium (3.5-5.1) mEq/L Chloride (98-107) mEq/L Carbon Dioxide (21-32) mEq/L Anion Gap (5-15) BUN (7-18) mg/dL Creatinine (0.7-1.3) mg/dL Est Cr Clr Drug Dosing mL/min Estimated GFR (MDRD) (>60) mL/min BUN/Creatinine Ratio (14-18) Glucose (70-99) mg/dL Calcium (8.5-10.1) mg/dL Total Bilirubin (0.2-1.0) mg/dL AST (15-37) U/L ALT (16-63) U/L Alkaline Phosphatase (46-116) U/L CK-MB (CK-2) (0-3.6) ng/ml Troponin I (0.00-0.056) ng/mL NT-Pro-B Natriuret Pep 349 H (0-125) pg/mL Total Protein (6.4-8.2) g/dl Albumin (3.4-5.0) g/dl Globulin gm/dL Albumin/Globulin Ratio (1-2) Meds: Medications Generic Name Dose Route Start Last Admin Trade Name Magalis PRN Reason Stop Dose Admin Sodium Chloride 10 ml 04/25/21 21:25 04/25/21 21:38 Sodium Chloride 0.9% 10 Ml Syringe FLUSH 10 ml ASDIRECTED PRN Administration Keep Vein Open Discontinued Medications Generic Name Dose Route Start Last Admin Trade Name Magalis PRN Reason Stop Dose Admin Aspirin 324 mg 04/26/21 01:23 04/26/21 01:30 Aspirin 81 Mg Tab.Chew PO 04/26/21 01:24 324 mg ONETIME ONE Administration Aspirin Confirm 04/26/21 01:34 Aspirin 81 Mg Tab.Chew Administered 04/26/21 01:35 Dose 81 mg .ROUTE .STK-MED ONE Furosemide 20 mg 04/25/21 23:16 04/25/21 23:39 Furosemide 20 Mg Tab PO 04/25/21 23:17 20 mg ONETIME ONE Administration Departure - Departure Time of Disposition: 01:46 Disposition: DC/Tfer to Acute Hospital 02 Condition: Good Clinical Impression: Atrial flutter, Shortness of breath, Dyspnea on minimal exertion - Discharge Information Referrals: Ty Ponce MD [Primary Care Provider] - Forms: ED Department Discharge Sepsis Event Note (ED) - Evaluation Sepsis Screening Result: No Definite Risk - Focused Exam Vital Signs: Vital Signs Temp Pulse Resp BP Pulse Ox 04/25/21 21:01 98.1 F 78 20 149/85 H 96 - My Orders Last 24 Hours: My Active Orders 04/25/21 21:25 Peripheral IV Care [RC] . DIRECTED Chest 2V [CR] Stat Sodium Chloride 0.9% [Saline Flush] 10 ml FLUSH ASDIRECTED PRN Peripheral IV Insertion Adult [OM.PC] Routine 04/25/21 22:19 EKG 12 Lead [EK] Stat 04/25/21 22:20 EKG Documentation Completion [RC] ASDIRECTED - Assessment/Plan Last 24 Hours: My Active Orders 04/25/21 21:25 Peripheral IV Care [RC] . DIRECTED Chest 2V [CR] Stat Sodium Chloride 0.9% [Saline Flush] 10 ml FLUSH ASDIRECTED PRN Peripheral IV Insertion Adult [OM.PC] Routine 04/25/21 22:19 EKG 12 Lead [EK] Stat 04/25/21 22:20 EKG Documentation Completion [RC] ASDIRECTED
[2021-04-26] MEDS ORDERED: Aspirin 81 MG Tab.Chew PO ONE (01:23)
[2021-04-26] MEDS ORDERED: Aspirin 81 MG Tab.Chew ONE (01:34)
--- NOTE | 2021-04-26 12:13 | CR ---
Chest: 2 views of the chest were obtained. Comparison: Prior chest x-ray of 06/29/18. Minimal scarring is seen within both lung bases. Lungs otherwise are clear. Heart size is normal. Slight tortuosity of the thoracic aorta is seen. Slight scattered degenerative change is seen within the spine. No acute osseous abnormality is identified.. Impression: 1. Findings as noted above. 2. Nothing acute is seen on 2 view chest x-ray. Diagnostic code #2
== END 2021-04-26 02:25 ==
LOC: JD.ED 20:37
DX: I48.92 Unspecified atrial flutter (principal); I10 Essential (primary) hypertension; I25.2 Old myocardial infarction; M10.9 Gout, unspecified; Z88.0 Allergy status to penicillin; Z79.82 Long term (current) use of aspirin; Z79.899 Other long term (current) drug therapy
CPT/HCPCS: 36415; 71046; 80053; 82553; 83880; 84484; 85007; 85027; 85379; 93005; 99285; A9270

== ENCOUNTER 2021-05-07 11:04 | Emergency (ER) | payer BC ==
[2021-05-07] MEDS ORDERED: Sodium Chloride 0.9% 10 ML Syringe FLUSH PRN ×2 (11:58→12:03)
[2021-05-07] MEDS ORDERED: Sodium Chloride 0.9% 1,000 ML IV STA (11:58)
[2021-05-07] MEDS ORDERED: Ondansetron 4 MG/2 ML SDV IVPUSH ONE (11:58)
[2021-05-07] MEDS ORDERED: HYDROmorphone 0.5 MG/0.5 ML Syringe IVPUSH ONE ×2 (11:58→13:48)
[2021-05-07] MEDS ORDERED: Iopamidol 612 MG/ML 50 ML SDV IVPUSH ONE (12:03)
[2021-05-07] MEDS ORDERED: Iopamidol 612 MG/ML 100 ML Bottle IVPUSH ONE (12:03)
--- NOTE | 2021-05-07 12:08 | EDM.PDOC ---
ED HPI GENERAL MEDICAL PROBLEM - General Chief Complaint: Abdominal Pain Stated Complaint: ABDOMINAL PAIN/POST ABLATION Time Seen by Provider: 05/07/21 11:31 Source of Information: Reports: Patient, RN Notes Reviewed History Limitations: Reports: No Limitations - History of Present Illness INITIAL COMMENTS - FREE TEXT/NARRATIVE: Patient is a 66-year-old male presenting to the emergency department with complaints of right abdominal pain. He reports that 9 days ago he had cardiac ablation surgery completed in [place]. His interventional radiologist was Dr. Grant and dean of student services is Dr. Hoffman. After this procedure, he was placed on Lovenox. He developed painful area of swelling on the right side of his abdomen after one of his Lovenox injections. This area has been getting progressively more swollen and painful. He was seen by his dean of student services in [place] yesterday. Ultrasound was completed the area and showed with the reports is a 4 inch hematoma within the abdominal wall. He also has a hematoma in his right groin which was ultrasounded yesterday as well per their report is decreasing in size. Patient states that his INR yesterday was 2.7, therefore his Lovenox was discontinued. He did have pain to the area yesterday and rated at a 6. Upon waking this morning, his pain was 10 out of 10. He took some Tylenol at home which he states did slightly improve the pain. Currently rates pain 6 out of 10 at rest, much worse with palpation. They called and spoke with Dr. Bingham to request pain medications. He advised him that if the pain is at s ignificant, he should report to the emergency department to be evaluated. 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: Other (see below) Other Treatments DOUBLE NEEDLE OPERATOR: tylenol Right Abdomen Pain Score (Numeric/FACES): 10 - Related Data Allergies Allergy/AdvReac Type Severity Reaction Status Date / Time Penicillins Allergy Severe Rash Verified 05/07/21 11:38 Home Meds: Home Meds Allopurinol [Zyloprim] 300 mg PO DAILY 05/05/20 [History] Rosuvastatin Calcium [Crestor] 5 mg PO DAILY 05/05/20 [History] Acetaminophen [Tylenol] 500 mg PO Q6H PRN 05/07/21 [History] Acetaminophen/oxyCODONE [Percocet 325-5 MG] 1 each PO Q4H PRN #15 tab 05/07/21 [Rx] Furosemide [Lasix] 20 mg PO DAILY 05/07/21 [History] Losartan [Cozaar] 25 mg PO DAILY 05/07/21 [History] Potassium Chloride 10 mg PO DAILY 05/07/21 [History] Warfarin [Coumadin] 5 mg PO MOWETH 05/07/21 [History] Warfarin [Coumadin] 7.5 mg PO SUTUFR 05/07/21 [History] metFORMIN [Glucophage] 500 mg PO DAILY 05/07/21 [History] Past Medical History HEENT History: Reports: Impaired Vision Other HEENT History: wears glasses Cardiovascular History: Reports: Hypertension, SC Other Cardiovascular History: abblation Respiratory History: Reports: Bronchitis, Recurrent, Pneumonia, Recurrent Other Respiratory History: 50% lung capacity Genitourinary History: Reports: Renal Calculus Musculoskeletal History: Reports: Back Pain, Chronic, Gout Endocrine/Metabolic History: Reports: Other (See Below) Other Endocrine/Metabolic History: borderline diabetic - Infectious Disease History Infectious Disease History: Reports: Chicken Pox, Measles, Mumps - Past Surgical History Cardiovascular Surgical History: Reports: Cardiac Ablation Social & Family History - Family History Family Medical History: No Pertinent Family History - Tobacco Use Tobacco Use Status *Q: Never Tobacco User - Caffeine Use Caffeine Use: Reports: Coffee - Recreational Drug Use Recreational Drug Use: No ED ROS GENERAL - Review of Systems Review Of Systems: See Below Constitutional: Reports: No Symptoms. Denies: Fever, Chills HEENT: Reports: No Symptoms Respiratory: Reports: No Symptoms Cardiovascular: Reports: No Symptoms Endocrine: Reports: No Symptoms GI/Abdominal: Reports: Nausea (Since starting Metformin 1 week ago), Other (Right abdominal wall pain and swelling). Denies: Diarrhea, Vomiting : Reports: No Symptoms Musculoskeletal: Reports: No Symptoms Skin: Reports: Bruising (Scattered throughout the abdomen) Neurological: Reports: No Symptoms Psychiatric: Reports: No Symptoms Hematologic/Lymphatic: Reports: No Symptoms Immunologic: Reports: No Symptoms ED EXAM, GI/ABD - Physical Exam Exam: See Below Exam Limited By: No Limitations General Appearance: Alert, Mild Distress Respiratory/Chest: No Respiratory Distress, Lungs Clear, Normal Breath Sounds, No Accessory Muscle Use, Chest Non-Tender Cardiovascular: Normal Peripheral Pulses, Regular Rate, Rhythm, No Edema, No Gallop, No JVD, No Murmur, No Rub GI/Abdominal Exam: Normal Bowel Sounds, Tender (Significant ecchymosis scattered throughout the abdomen. Large, swollen, firm hematoma to the right mid abdomen. There is significantly tender to only light touch. Deep palpation deferred due to pain.) Neurological: Alert, Oriented, CN II-XII Intact, Normal Cognition, Normal Gait, Normal Reflexes, No Motor/Sensory Deficits Psychiatric: Normal Affect, Normal Mood Course - Vital Signs Last Recorded V/S: Last Vital Signs Temp 96.9 F 05/07/21 11:27 Pulse 85 05/07/21 11:27 Resp 24 H 05/07/21 11:27 BP 154/91 H 05/07/21 11:27 Pulse Ox 96 05/07/21 11:27 - Orders/Labs/Meds Orders: Active Orders 24 hr Category Date Time Status Peripheral IV Care [RC] . DIRECTED Care 05/07/21 11:58 Active Sodium Chloride 0.9% [Normal Saline] 1,000 ml Med 05/07/21 11:58 Active IV NOW Sodium Chloride 0.9% [Saline Flush] Med 05/07/21 11:58 Active 10 ml FLUSH ASDIRECTED PRN Sodium Chloride 0.9% [Saline Flush] Med 05/07/21 12:03 Active 10 ml FLUSH ONETIME PRN DME for Discharge [COMM] Routine Oth 05/07/21 13:24 Ordered Peripheral IV Insertion Adult [OM.PC] Stat Oth 05/07/21 11:57 Ordered Medication Orders Sodium Chloride (Normal Saline) 1,000 mls @ 150 mls/hr IV NOW STA Stop: 05/07/21 18:37 Last Admin: 05/07/21 12:14 Dose: 150 mls/hr Documented by: FEDERICO Sodium Chloride (Sodium Chloride 0.9% 10 Ml Syringe) 10 ml FLUSH ASDIRECTED PRN PRN Reason: Keep Vein Open Last Admin: 05/07/21 12:15 Dose: 10 ml Documented by: FEDERICO Sodium Chloride (Sodium Chloride 0.9% 10 Ml Syringe) 10 ml FLUSH ONETIME PRN PRN Reason: IV FLUSH Last Admin: 05/07/21 12:15 Dose: 10 ml Documented by: FEDERICO Labs: Laboratory Tests 05/07/21 05/07/21 05/07/21 Range/Units 12:05 12:05 12:05 WBC 9.22 H (4.23-9.07) K/mm3 RBC 4.52 L (4.63-6.08) M/mm3 Hgb 14.4 (13.7-17.5) gm/dl Hct 43.4 (40.1-51.0) % MCV 96.0 H (79.0-92.2) fl MCH 31.9 (25.7-32.2) pg MCHC 33.2 (32.2-35.5) g/dl RDW Std Deviation 48.2 H (35.1-43.9) fL Plt Count 259 (163-337) K/mm3 MPV 10.2 (9.4-12.3) fl Neut % (Auto) 65.7 (34.0-67.9) % Lymph % (Auto) 17.8 L (21.8-53.1) % Hubbard % (Auto) 14.5 H (5.3-12.2) % Eos % (Auto) 1.6 (0.8-7.0) Baso % (Auto) 0.2 (0.1-1.2) % Neut # (Auto) 6.05 H (1.78-5.38) K/mm3 Lymph # (Auto) 1.64 (1.32-3.57) K/mm3 Hubbard # (Auto) 1.34 H (0.30-0.82) K/mm3 Eos # (Auto) 0.15 (0.04-0.54) K/mm3 Baso # (Auto) 0.02 (0.01-0.08) K/mm3 PT 30.2 H D (9.7-12.0) SECONDS INR 2.88 Sodium 139 (136-145) mEq/L Potassium 4.4 (3.5-5.1) mEq/L Chloride 105 (98-107) mEq/L Carbon Dioxide 24 (21-32) mEq/L Anion Gap 14.4 (5-15) BUN 13 (7-18) mg/dL Creatinine 0.9 (0.7-1.3) mg/dL Est Cr Clr Drug Dosing 91.01 mL/min Estimated GFR (MDRD) > 60 (>60) mL/min BUN/Creatinine Ratio 14.4 (14-18) Glucose 106 H (70-99) mg/dL Calcium 8.9 (8.5-10.1) mg/dL Total Bilirubin 0.8 (0.2-1.0) mg/dL AST 30 (15-37) U/L ALT 57 (16-63) U/L Alkaline Phosphatase 47 (46-116) U/L C-Reactive Protein 3.2 H* (<1.0) mg/dL Total Protein 7.1 (6.4-8.2) g/dl Albumin 3.5 (3.4-5.0) g/dl Globulin 3.6 gm/dL Albumin/Globulin Ratio 1.0 (1-2) Meds: Medications Generic Name Dose Route Start Last Admin Trade Name Magalis PRN Reason Stop Dose Admin Sodium Chloride 1,000 mls @ 150 mls/hr 05/07/21 11:58 05/07/21 12:14 Normal Saline IV 05/07/21 18:37 150 mls/hr NOW STA Administration Sodium Chloride 10 ml 05/07/21 11:58 05/07/21 12:15 Sodium Chloride 0.9% 10 Ml Syringe FLUSH 10 ml ASDIRECTED PRN Administration Keep Vein Open Sodium Chloride 10 ml 05/07/21 12:03 05/07/21 12:15 Sodium Chloride 0.9% 10 Ml Syringe FLUSH 10 ml ONETIME PRN Administration IV FLUSH Discontinued Medications Generic Name Dose Route Start Last Admin Trade Name Magalis PRN Reason Stop Dose Admin Hydromorphone HCl 0.5 mg 05/07/21 11:58 05/07/21 12:15 Hydromorphone 0.5 Mg/0.5 Ml Syringe IVPUSH 05/07/21 11:59 0.5 mg ONETIME ONE Administration Hydromorphone HCl 0.5 mg 05/07/21 13:48 05/07/21 13:53 Hydromorphone 0.5 Mg/0.5 Ml Syringe IVPUSH 05/07/21 13:49 0.5 mg ONETIME ONE Administration Iopamidol 50 ml 05/07/21 12:03 Iopamidol 612 Mg/Ml 50 Ml Sdv IVPUSH 05/07/21 12:04 ONETIME ONE Iopamidol 100 ml 05/07/21 12:03 Iopamidol 612 Mg/Ml 100 Ml Bottle IVPUSH 05/07/21 12:04 ONETIME ONE Ondansetron HCl 4 mg 05/07/21 11:58 05/07/21 12:15 Ondansetron 4 Mg/2 Ml Sdv IVPUSH 05/07/21 11:59 4 mg ONETIME ONE Administration - Re-Assessments/Exams Free Text/Narrative Re-Assessment/Exam: Patient is a 66-year-old male presenting to the emergency department with complaints of severe right abdominal well pain. He was on Lovenox up until yesterday following cardiac ablation surgery 9 days ago. After injection of Lovenox into this area, he developed swelling which has been progressively wors ening as well as progressively worsening pain. He was seen by his dean of student services yesterday and ultrasound was completed. Reports it did show a large hematoma to the area. Today the pain is significantly worse. Spoke to his dean of student services who recommended he come to the ER for evaluation. On exam, he does have diffuse ecchymosis scattered throughout his abdomen. In the area discomfort, there is a large, firm area of swelling. This is tender to even light touch. Tylenol this morning. I have ordered blood work and CT scan of the abdomen pelvis with IV contrast only. I will give IV fluids, Dilaudid 0.5 mg IV, and Zofran 4 mg IV. 05/07/[address] scan of the abdomen pelvis with IV contrast impression as follows: 1. Thickening of the right anterior abdominal wall muscle with blood fluid l evel measuring up to 6.1 cm compatible with abdominal wall hematoma. 2. Slightly increased density within the adjacent abdominal wall is noted within the fat likely representing inflammatory change. 3. Other findings as noted above which are chronic. Case discussed with surgeon on-call, Dr. Santiago. She verbalized that drainage is not necessary at this time. Recommend abdominal binder and discontinuation of anticoagulants. He is already off of his Lovenox; cardiac ablation surgery, is likely not feasible for him to stop this. I did call and speak with his dean of student services, Dr. Bingham. He agreed that patient cannot stop anticoagulation. He would like his Coumadin dose reduced to 5 mg daily and have his INR rechecked on Monday. He verbalized that hematoma yesterday on ultrasound was 3.8 cm x 1 cm in size. Today it is 6.1, therefore it did increase in size. He would like his INR rechecked on Monday and have the results faxed to him. I updated Dr. Thurman that he cannot come off a nticoagulation. She verbalized that pressure is the first step in treatment. If this does not stop the bleeding, next step would be embolization by interventional radiology. I have ordered an additional dose of Dilaudid 0.5 mg IV to be given prior to placing the abdominal binder. I will then discharge him home on Percocet. I have written outpatient orders and requested to have these results faxed to Dr. Bingham. Discussed that if the area of seems to be increasing in size, he has increasing pain, or develops redness and warmth in the area, he should be reevaluated in the emergency department. To make him aware that we do not have interventional radiology services available here, therefore he would need to be transferred to [place]. They verbalized understanding of this. Discharge instructions as documented. Departure - Departure Time of Disposition: 14:05 Disposition: Home, Self-Care 01 Condition: Good Clinical Impression: History of cardiac radiofrequency ablation Abdominal wall hematoma Qualifiers: Encounter type: initial encounter Qualified Code(s): S30.1XXA - Contusion of abdominal wall, initial encounter - Discharge Information *PRESCRIPTION DRUG MONITORING PROGRAM REVIEWED*: No *COPY OF PRESCRIPTION DRUG MONITORING REPORT IN PATIENT PAZ: No Prescriptions: Acetaminophen/oxyCODONE [Percocet 325-5 MG] 1 each PO Q4H PRN #15 tab PRN Reason: Pain Referrals: Ty Ponce MD [Primary Care Provider] - Dada Bingham MD [Ordering Only Provider] - Forms: ED Department Discharge Additional Instructions: You were seen in the emergency department today for increasing pain to hematoma in your right sided abdomen. Work-up included blood work and a CT scan your abdomen pelvis. CT scan show they have a 6.1 cm hematoma in the abdominal wall. This is the cause of your pain. While in the ER, you received IV fluids, nausea medication, and pain medication. Your case was discussed with our general surgeon on-call and your dean of student services, Dr. Bingham. Recommendation is that you wear an abdominal binder at all times for at least the next week. This will help keep pressure on the area. You should decrease your Coumadin dose to 5 mg daily. Outpatient orders have been written for you to have your INR checked on Monday. These results will be faxed to Dr. Bingham. You may continue to use Tylenol as needed for pain. For pain not relieved by this, you have been prescribed Percocet. Use this only as prescribed. Do not work or drive for 12 hours after taking this as it can be sedating. Do not exceed 4000 mg of Tylenol from all sources in a 24-hour period. If hematoma continues to grow despite the pressure from the abdominal binder, the next step would be treatment from an interventional radiologist in [place]. If you should develop worsening pain, worsening swelling, redness and warmth to the area or any other concerning symptoms, I would recommend returning to the emergency department for reevaluation. Sepsis Event Note (ED) - Evaluation Sepsis Screening Result: No Definite Risk - Focused Exam Vital Signs: Vital Signs Temp Pulse Resp BP Pulse Ox 05/07/21 11:27 96.9 F 85 24 H 154/91 H 96 - My Orders Last 24 Hours: My Active Orders 05/07/21 11:57 Peripheral IV Insertion Adult [OM.PC] Stat 05/07/21 11:58 Peripheral IV Care [RC] . DIRECTED Sodium Chloride 0.9% [Normal Saline] 1,000 ml IV NOW Sodium Chloride 0.9% [Saline Flush] 10 ml FLUSH ASDIRECTED PRN 05/07/21 12:03 Sodium Chloride 0.9% [Saline Flush] 10 ml FLUSH ONETIME PRN 05/07/21 13:24 DME for Discharge [COMM] Routine - Assessment/Plan Last 24 Hours: My Active Orders 05/07/21 11:57 Peripheral IV Insertion Adult [OM.PC] Stat 05/07/21 11:58 Peripheral IV Care [RC] . DIRECTED Sodium Chloride 0.9% [Normal Saline] 1,000 ml IV NOW Sodium Chloride 0.9% [Saline Flush] 10 ml FLUSH ASDIRECTED PRN 05/07/21 12:03 Sodium Chloride 0.9% [Saline Flush] 10 ml FLUSH ONETIME PRN 05/07/21 13:24 DME for Discharge [COMM] Routine
--- NOTE | 2021-05-07 13:15 | CT ---
CT abdomen and pelvis Technique: Multiple axial sections were obtained from above the dome of the diaphragm inferiorly through the pubic symphysis. Intravenous contrast was utilized. No oral contrast has been given. Reconstructed coronal and sagittal images were obtained. Comparison: Prior CT abdomen and pelvis exam of 07/20/20. Findings: Visualized lung bases show some extrapleural fat within the left base and lesser within the right base. Minimal areas of scarring and atelectasis are noted. Small low density finding is seen within the right lobe of the liver which is felt compatible with a liver cyst, this is similar to the prior exam. A second lesion is noted close to the gallbladder measuring about 4 mm which is likely due to an additional cyst. Gallbladder contains no calcified gallstones. Spleen size is normal. Adrenal glands show no nodule. Pancreas is within normal limits. Kidneys show symmetric contrast enhancement. Several small nonobstructing calculi are seen within both kidneys which measure less than 1 cm. No ureteral dilatation is seen. No ureteral calculi are seen. Abdominal aorta shows no aneurysm. No retroperitoneal adenopathy or mesenteric abnormalities are seen. There is soft tissue thickening within the right anterior abdominal wall muscle with a blood fluid level measuring approximately 6.1 cm presumably due to right abdominal wall hematoma. Slight increased density is seen within the adjacent fat. No pelvic mass or adenopathy is seen. Prostate calcifications are noted. Bone window settings were reviewed which show mild scoliosis within the spine with mild scattered degenerative change also noted within the spine. Impression: 1. Thickening of the right anterior abdominal wall muscle with blood fluid level measuring up to 6.1 cm compatible with abdominal wall hematoma. 2. Slight increased density within the adjacent abdominal wall is noted within the fat likely representing inflammatory change. 3. Other findings as noted above which are chronic. Diagnostic code #3
[2021-05-07] MEDS ORDERED: Acetaminophen/oxyCODONE 325-5 MG Tab PO ONE (14:04)
== END 2021-05-07 14:33 | disposition home or self-care (01) ==
LOC: JD.ED 11:04
DX: M79.81 Nontraumatic hematoma of soft tissue (principal); I10 Essential (primary) hypertension; I25.2 Old myocardial infarction; M10.9 Gout, unspecified; Z88.0 Allergy status to penicillin; Z79.01 Long term (current) use of anticoagulants; Z79.899 Other long term (current) drug therapy
CPT/HCPCS: 36415; 74177; 80053; 85025; 85610; 86140; 96374; 96375; 96376; 99284; A9270; J1170; J2405; J7030

== ENCOUNTER 2021-05-08 17:49 | Emergency (ER) | payer BC ==
[2021-05-08] MEDS ORDERED: Sodium Chloride 0.9% 10 ML Syringe FLUSH PRN (18:18)
[2021-05-08] MEDS ORDERED: Ondansetron 4 MG/2 ML SDV IVPUSH ONE (18:19)
[2021-05-08] MEDS ORDERED: Sodium Chloride 0.9% 1,000 ML IV STA (18:19)
[2021-05-08] MEDS ORDERED: HYDROmorphone 0.5 MG/0.5 ML Syringe IVPUSH ONE (18:19)
--- NOTE | 2021-05-08 19:21 | CT ---
Head CT Technique: Multiple axial sections through the brain were obtained. Intravenous contrast was not utilized. Comparison: No prior head CT study is available. Findings: Ventricles along with basal cisterns and sulci over the convexities are mildly to moderately prominent. Slight diminished density is noted within the periventricular white matter which is compatible with mild small vessel ischemic demyelination change. There is no evidence of intracranial hemorrhage. No midline shift or mass-effect is seen. Bone window settings were reviewed. Mild mucosal thickening is seen within both maxillary sinuses, ethmoid sinuses and frontal sinuses which is likely due to mild chronic sinusitis. Visualized paranasal sinuses show nothing acute. No acute calvarial abnormality is appreciated. Impression: 1. Mild chronic sinusitis. 2. Senescent change as noted above. 3. No evidence of intracranial hemorrhage or other acute abnormality. Diagnostic code #2
--- NOTE | 2021-05-08 19:39 | US ---
Limited abdominal ultrasound: Multiple real-time images of the abdominal wall were obtained. Hypoechoic hematoma is identified within the right side of the abdominal wall which measures approximately 7.6 x 3.7 x 6.0 cm. Impression: 1. Abdominal wall hematoma with measurements as noted above. This finding may be minimally increased in size from prior CT study. Diagnostic code #3
--- NOTE | 2021-05-08 20:01 | EDM.PDOC ---
ED HPI GENERAL MEDICAL PROBLEM - General Chief Complaint: Syncope Stated Complaint: [facility] Time Seen by Provider: 05/08/21 18:10 Source of Information: Reports: Patient, RN Notes Reviewed History Limitations: Reports: No Limitations - History of Present Illness INITIAL COMMENTS - FREE TEXT/NARRATIVE: Patient is a 66-year-old male presenting to the emergency department via [facility] after having syncopal episode at home. He reports that he was using the toilet and attempted to have a bowel movement. He has not had a bowel movement since Monday but is passing gas. States he occasionally gets some abdominal cramping. After standing up, he became dizzy. He notified his and she assisted him to the floor. He did not fall and he did not hit his head. reports that he closed his eyes, but is not sure if he lost consciousness. He does not remember being lowered to the floor but does remember waking up on the floor. Symptoms resolved gradually. He was able to get up and walk with assistance ambulating outside by the time ambulance arrived. He denies any headache, nausea, or dizziness at this time. Patient did recently have cardiac ablation surgery 10 days ago. He was seen in this emergency department yesterday for evaluation of an abdominal wall hematoma. Abdominal binder was applied at that time. He states that his pain is much better with regards to this. He has not had to take anything for pain since 11:00 this morning. He has been up moving around throughout the day with little difficulty. Abdominal Pain Score (Numeric/FACES): 4 - Related Data Allergies Allergy/AdvReac Type Severity Reaction Status Date / Time Penicillins Allergy Severe Rash Verified 05/08/21 17:59 Home Meds: Home Meds Allopurinol [Zyloprim] 300 mg PO DAILY 05/05/20 [History] Rosuvastatin Calcium [Crestor] 5 mg PO DAILY 05/05/20 [History] Acetaminophen [Tylenol] 500 mg PO Q6H PRN 05/07/21 [History] Acetaminophen/oxyCODONE [Percocet 325-5 MG] 1 each PO Q4H PRN #15 tab 05/07/21 [Rx] Furosemide [Lasix] 20 mg PO DAILY 05/07/21 [History] Losartan [Cozaar] 25 mg PO DAILY 05/07/21 [History] Potassium Chloride 10 mg PO DAILY 05/07/21 [History] Warfarin [Coumadin] 5 mg PO DAILY 05/07/21 [History] metFORMIN [Glucophage] 500 mg PO DAILY 05/07/21 [History] Clindamycin HCl 450 mg PO TID #63 capsule 05/08/21 [Rx] Past Medical History HEENT History: Reports: Impaired Vision Other HEENT History: wears glasses Cardiovascular History: Reports: Hypertension, [place] Other Cardiovascular History: abblation Respiratory History: Reports: Bronchitis, Recurrent, Pneumonia, Recurrent Other Respiratory History: 50% lung capacity Genitourinary History: Reports: Renal Calculus Musculoskeletal History: Reports: Back Pain, Chronic, Gout Endocrine/Metabolic History: Reports: Other (See Below) Other Endocrine/Metabolic History: borderline diabetic - Infectious Disease History Infectious Disease History: Reports: Chicken Pox, Measles, Mumps - Past Surgical History Cardiovascular Surgical History: Reports: Cardiac Ablation Social & Family History - Family History Family Medical History: No Pertinent Family History - Tobacco Use Tobacco Use Status *Q: Never Tobacco User - Caffeine Use Caffeine Use: Reports: Coffee ED ROS GENERAL - Review of Systems Review Of Systems: See Below Constitutional: Reports: No Symptoms. Denies: Fever, Chills HEENT: Reports: No Symptoms Respiratory: Reports: No Symptoms. Denies: Shortness of Breath, Cough Cardiovascular: Reports: No Symptoms Endocrine: Reports: No Symptoms GI/Abdominal: Reports: Abdominal Pain (rt lateral hematoma), Constipation. Denies: Diarrhea, Nausea, Vomiting : Reports: No Symptoms Musculoskeletal: Reports: No Symptoms Skin: Reports: No Symptoms Neurological: Reports: Syncope Psychiatric: Reports: No Symptoms Hematologic/Lymphatic: Reports: No Symptoms Immunologic: Reports: No Symptoms - Physical Exam Exam: See Below Exam Limited By: Intoxication General Appearance: Alert, WD/WN, No Apparent Distress Neck: Normal Inspection, Supple, Non-Tender, Full Range of Motion Respiratory/Chest: No Respiratory Distress, Lungs Clear, Normal Breath Sounds, No Accessory Muscle Use, Chest Non-Tender Cardiovascular: Normal Peripheral Pulses, Regular Rate, Rhythm, No Edema, No Gallop, No JVD, No Murmur, No Rub GI/Abdominal: Normal Bowel Sounds, Soft, No Organomegaly, No Distention, No Abnormal Bruit, No Mass, Tender (right abdominal tenderness with palpable hematoma. Appears smaller than yesterday. Significant ecchymosis scattered throughout abomen. Slight redness surrounding hematoma.) Neuro Exam (Abbreviated): Alert, Oriented, CN II-XII Intact, Normal Cognition, Normal Gait, Normal Reflexes, No Motor/Sensory Deficits Psychiatric: Normal Affect, Normal Mood #1 Interpretation EKG Date: 05/08/21 Time: 18:35 Rhythm: NSR Rate (Beats/Min): 84 Pope: Normal P-Wave: Present QRS: Normal ST-T: Normal QT: Normal Course - Vital Signs Last Recorded V/S: Last Vital Signs Temp 97.8 F 05/08/21 17:56 Pulse Resp 18 05/08/21 17:56 BP 139/80 05/08/21 17:56 Pulse Ox 97 05/08/21 17:56 - Orders/Labs/Meds Labs: Laboratory Tests 05/08/21 05/08/21 Range/Units 19:22 19:22 WBC 14.03 H (4.23-9.07) K/mm3 RBC 4.49 L (4.63-6.08) M/mm3 Hgb 14.1 (13.7-17.5) gm/dl Hct 43.3 (40.1-51.0) % MCV 96.4 H (79.0-92.2) fl MCH 31.4 (25.7-32.2) pg MCHC 32.6 (32.2-35.5) g/dl RDW Std Deviation 47.9 H (35.1-43.9) fL Plt Count 264 (163-337) K/mm3 MPV 10.2 (9.4-12.3) fl Neut % (Auto) 81.6 H (34.0-67.9) % Lymph % (Auto) 5.3 L (21.8-53.1) % [place] % (Auto) 12.2 (5.3-12.2) % Eos % (Auto) 0.5 L (0.8-7.0) Baso % (Auto) 0.1 (0.1-1.2) % Neut # (Auto) 11.44 H (1.78-5.38) K/mm3 Lymph # (Auto) 0.75 L (1.32-3.57) K/mm3 [place] # (Auto) 1.71 H (0.30-0.82) K/mm3 Eos # (Auto) 0.07 (0.04-0.54) K/mm3 Baso # (Auto) 0.02 (0.01-0.08) K/mm3 Manual Slide Review Abnormal smear Sodium 137 (136-145) mEq/L Potassium 4.0 (3.5-5.1) mEq/L Chloride 101 (98-107) mEq/L Carbon Dioxide 27 (21-32) mEq/L Anion Gap 13.0 (5-15) BUN 12 (7-18) mg/dL Creatinine 1.1 (0.7-1.3) mg/dL Est Cr Clr Drug Dosing 74.46 mL/min Estimated GFR (MDRD) > 60 (>60) mL/min BUN/Creatinine Ratio 10.9 L (14-18) Glucose 110 H (70-99) mg/dL Calcium 8.5 (8.5-10.1) mg/dL Total Bilirubin 0.7 (0.2-1.0) mg/dL AST 30 (15-37) U/L ALT 46 (16-63) U/L Alkaline Phosphatase 45 L (46-116) U/L Troponin I < 0.017 (0.00-0.056) ng/mL C-Reactive Protein 11.4 H* (<1.0) mg/dL Total Protein 7.0 (6.4-8.2) g/dl Albumin 3.4 (3.4-5.0) g/dl Globulin 3.6 gm/dL Albumin/Globulin Ratio 0.9 L (1-2) Meds: Medications Discontinued Medications Generic Name Dose Route Start Last Admin Trade Name Freq PRN Reason Stop Dose Admin Clindamycin HCl 450 mg 05/08/21 20:20 05/08/21 20:27 Clindamycin Hcl 150 Mg Cap PO 05/08/21 20:21 450 mg ONETIME ONE Administration Hydromorphone HCl 0.5 mg 05/08/21 18:19 05/08/21 18:41 Hydromorphone 0.5 Mg/0.5 Ml Syringe IVPUSH 05/08/21 18:20 0.5 mg ONETIME ONE Administration Sodium Chloride 1,000 mls @ 150 mls/hr 05/08/21 18:19 05/08/21 18:41 Normal Saline IV 05/09/21 00:58 150 mls/hr NOW STA Administration Magnesium Citrate 296 ml 05/08/21 20:18 05/08/21 20:27 Magnesium Citrate Solution 296 Ml Bottle PO 05/08/21 20:19 296 ml ONETIME ONE Administration Ondansetron HCl 4 mg 05/08/21 18:19 05/08/21 18:41 Ondansetron 4 Mg/2 Ml Sdv IVPUSH 05/08/21 18:20 4 mg ONETIME ONE Administration Sodium Chloride 10 ml 05/08/21 18:18 05/08/21 18:41 Sodium Chloride 0.9% 10 Ml Syringe FLUSH 10 ml ASDIRECTED PRN Administration Keep Vein Open - Re-Assessments/Exams Free Text/Narrative Re-Assessment/Exam: Patient is a 66-year-old male presenting to the emergency department after experiencing syncopal episode at home. Reports that he was straining to have a bowel movement, which she was unsuccessful doing. Once getting up from the toilet, he became dizzy. He was able to notify his who came to his assistance. She assisted him to the floor and to lie down. He did not fall or hit his head. He is on Coumadin blood thinner recent cardiac ablation surgery. He is also being treated for hematoma of the abdominal wall caused by Lovenox injections. I did see him in the ER yesterday with his complaint. He reports the pain with regards to this is much better. They feel the hematoma is smaller than it was yesterday. On exam, he does still have a significant amount of ecchymosis to his abdomen. It does appear to be less swollen, however there is some slight redness that was not present yesterday. Unsure if this could be due to developing infection or related to the abdominal binder which she has been w earing. He denies any headaches, dizziness, or vision changes at this time. Since he is on blood thinners and experienced syncopal episode, I am going to complete a head CT. Of also ordered ultrasound of the hematoma of the abdominal wall to assess if it is grown in size since yesterday. Abdomen flat and upright x-ray was completed to assess for constipation as he has not had a bowel movement since Monday. Does report that he is passing gas however. I have also ordered blood work and an EKG. 05/08/21 20:25 Hematology was significant for WBC elevated at 14.03. This is up from 9.22 y esterday. CRP elevated at 11.4 which is up from 3.2 yesterday. Ultrasound of the hematoma shows that it may be minimally increased in size from prior CT study, however this could be due to the abdominal binder compressing it more flat versus its more round presentation yesterday. Given the slight redness of the area as well as increase in white blood cells and CRP, there is concern that he could have a developing infection of the hematoma. Case was discussed with Dr. Santiago, the general surgeon on-call, who is somewhat familiar with his case as I did visit with her yesterday as well. She recommended starting him on clindamycin for treatment of possible developing infection and that he follow-up with her in the clinic early next week. EKG shows normal sinus rhythm at [address] Head CT is normal. Abdomen x-ray does show increased stool throughout the descending and transverse colon. Patient is feeling much better and is ready to go home. He will be sent home with a bottle of magnesium citrate. Also recommend that he start stool softener once he has had a good bowel movement. They will call to schedule an appointment to follow- up with Dr. Watson in the clinic on Monday. Discussed return precautions. Discharge instructions as documented. Departure - Departure Time of Disposition: 20:29 Disposition: Home, Self-Care 01 Condition: Good Clinical Impression: Vasovagal syncope Abdominal wall hematoma Qualifiers: Encounter type: initial encounter Qualified Code(s): S30.1XXA - Contusion of abdominal wall, initial encounter Constipation Qualifiers: Constipation type: unspecified constipation type Qualified Code(s): K59.00 - Constipation, unspecified - Discharge Information Prescriptions: Clindamycin HCl 450 mg PO TID #63 capsule Instructions: Constipation, Adult, [id number], Syncope, [id number] Referrals: Ty Ponce MD [Primary Care Provider] - Melissa Santiago MD [Physician] - Forms: ED Department Discharge Additional Instructions: You were seen in the emergency department today for evaluation after having a syncopal episode at home. Work-up included blood work, EKG of your heart, head CT, ultrasound of your abdominal wall hematoma, and abdomen x-ray. Results of your head CT and EKG were normal. There was a slight increase in your white blood cells and inflammatory markers in your blood work which raises concern of possible developing infection within your hematoma of your abdominal wall. X- ray of your abdomen did show increased stool. Your case was discussed with the surgeon on-call at [place], Dr. Santiago. She recommended that you be started on oral antibiotics to treat a possible developing infection, and she would like to see you in the clinic early next week. You have been started on clindamycin for this. Your syncopal episode was likely due to vasovagal syncope related to straining to have a bowel movement. You have been sent home with a bottle of magnesium citrate. Recommend that you drink half this bottle when you get home. If you do not have a bowel movement within a few hours, you may drink the other half of the bottle. Once you have had a good bowel movement, I would recommend that you start taking a stool softener such as Colace as long as you are still taking pain medications and possibly even after until you achieve a regular bowel pattern. Contact Dr. Santiago's office at [facility] Monday morning to set up a follow-up appointment. The number to schedule with you as listed below. She would like to see you early this week to monitor the hematoma. Continue to wear your abdominal binder. If you should experience any new or worsening symptoms of concern, please do not hesitate to return to the emergency department for reevaluation. Sepsis Event Note (ED) - Evaluation Sepsis Screening Result: No Definite Risk
--- NOTE | 2021-05-08 20:02 | CR ---
Abdomen: Supine and upright views of the abdomen were obtained. Comparison: Previous abdomen and pelvis CT of 05/07/21. Stool within the colon is minimally increased. Bowel gas pattern is otherwise unremarkable. No abnormal calcifications or discrete soft tissue abnormality is seen. Slight degenerative change is noted within the spine. Degenerative change is also noted within both hips which is worse on the right side. Impression: 1. Minimal increased stool within the colon. 2. Degenerative change as described above. Diagnostic code #2
[2021-05-08] MEDS ORDERED: Magnesium Citrate Solution 296 ML Bottle PO ONE (20:18)
[2021-05-08] MEDS ORDERED: Clindamycin HCl 150 MG Cap PO ONE (20:20)
== END 2021-05-08 20:50 | disposition home or self-care (01) ==
LOC: JD.ED 17:49
DX: S30.1XXA Contusion of abdominal wall, initial encounter (principal); K59.00 Constipation, unspecified; R55 Syncope and collapse; I10 Essential (primary) hypertension; I25.2 Old myocardial infarction; Z79.899 Other long term (current) drug therapy; Z79.82 Long term (current) use of aspirin; Z79.01 Long term (current) use of anticoagulants; Z79.84 Long term (current) use of oral hypoglycemic drugs; X58.XXXA Exposure to other specified factors, initial encounter
CPT/HCPCS: 36415; 70450; 74019; 76705; 80053; 84484; 85025; 86140; 93005; 96374; 96375; 99285; A9270; J1170; J2405; J7030; 93010; 99284

== ENCOUNTER 2021-06-09 15:46 | Emergency (ER) | payer BC ==
--- NOTE | 2021-06-09 16:29 | EDM.PDOC ---
ED HPI GENERAL MEDICAL PROBLEM - General Chief Complaint: Upper Extremity Injury/Pain Stated Complaint: RIGHT SHOULDER INJURY Time Seen by Provider: 06/09/21 16:25 Source of Information: Reports: Patient History Limitations: Reports: No Limitations - History of Present Illness INITIAL COMMENTS - FREE TEXT/NARRATIVE: 66-year-old male presents to the ED for evaluation of severe pain in his right shoulder. Patient states that around 0400 hrs. this morning he was up and got tripped up by his dog and then accidentally stepped on a dog toy which propelled him backwards falling on outstretched hands to the floor. Unfortunately his right shoulder came in contact with a very large piano that is super heavy. He does not believe the piano moved at all. Gradually worsening pain in the right shoulder as the day is gone on. Patient was on Coumadin but has been off since May 27. He denies hitting his head or hurting his neck. No pain in his wrist or elbow on the right side. Did suffer an abrasion to the medial aspect of his left arm which is mildly tender. No injuries to the buttocks or hips. He has been on his feet all day long. Patient is right-hand dominant. Onset: Today, Sudden Onset Date: 06/09/21 Onset Time: 04:00 Duration: Hour(s):, Getting Worse Location: Reports: Upper Extremity, Right (Right shoulder pain gradually worsening over the last 4 hours since fall this morning.) Quality: Reports: Ache, Throbbing Severity: Severe (Is worsened by trying to get his arm above his head which she can do but causes severe pain.) Improves with: Reports: Rest (Does have pain at rest but better than when he is try to move it above his head.) Worsens with: Reports: Movement (Especially forward flexion and abduction. He can get his arm above his head when he is lying semifowler's position.) Context: Reports: Trauma (Tripped and fell backwards against the piano at home early this morning.). Denies: Activity, Exercise, Lifting, Sick Contact Associated Symptoms: Reports: No Other Symptoms Treatments VP OF PRODUCT: Reports: Acetaminophen, NSAIDS (Tried without much relief.) Right Shoulder Pain Score (Numeric/FACES): 7 - Related Data Allergies Allergy/AdvReac Type Severity Reaction Status Date / Time Penicillins Allergy Severe Rash Verified 06/09/21 16:10 Home Meds: Home Meds Allopurinol [Zyloprim] 100 mg PO DAILY 05/05/20 [History] Rosuvastatin Calcium [Crestor] 5 mg PO DAILY 05/05/20 [History] Acetaminophen [Tylenol] 500 mg PO Q6H PRN 05/07/21 [History] Furosemide [Lasix] 20 mg PO DAILY 05/07/21 [History] Losartan [Cozaar] 25 mg PO DAILY 05/07/21 [History] Potassium Chloride 10 mg PO DAILY 05/07/21 [History] oxyCODONE HCl/Acetaminophen [Percocet 5-325 mg Tablet] 1 - 2 each PO Q4H PRN #28 tablet 06/09/21 [Rx] Past Medical History HEENT History: Reports: Impaired Vision Other HEENT History: wears glasses Cardiovascular History: Reports: Arrhythmia, Hypertension, VT Other Cardiovascular History: ablation, atrial flutter Respiratory History: Reports: Bronchitis, Recurrent, Pneumonia, Recurrent Other Respiratory History: 50% lung capacity Genitourinary History: Reports: BPH, Renal Calculus, Other (See Below) (Patient appreciated passing some kidney stones this morning with minimal to no discomfort.) Musculoskeletal History: Reports: Back Pain, Chronic, Gout Endocrine/Metabolic History: Reports: Obesity/BMI 30+, Other (See Below) Other Endocrine/Metabolic History: borderline diabetes - Infectious Disease History Infectious Disease History: Reports: Chicken Pox, Measles, Mumps - Past Surgical History Cardiovascular Surgical History: Reports: Cardiac Ablation Social & Family History - Family History Family Medical History: No Pertinent Family History - Tobacco Use Tobacco Use Status *Q: Never Tobacco User Second Hand Smoke Exposure: No - Caffeine Use Caffeine Use: Reports: Coffee - Recreational Drug Use Recreational Drug Use: No - Living Situation & Occupation Living situation: Reports: Occupation: Employed Review of Systems - Review of Systems Review Of Systems: See Below Constitutional: Denies: Chills, Diaphoresis, Fever, Weakness, Other Eyes: Reports: No Symptoms Ears: Reports: No Symptoms Nose: Reports: No Symptoms Mouth/Throat: Reports: No Symptoms Respiratory: Reports: No Symptoms Cardiovascular: Reports: Other (Chronic hypertension) GI/Abdominal: Reports: Other (Occasional GERD dyspepsia.) Genitourinary: Reports: Other (Urinary frequency. Nocturia x1 or 2.) Musculoskeletal: Reports: Back Pain (History of gout), Other Skin: Reports: No Symptoms Neurological: Reports: No Symptoms Psychiatric: Reports: No Symptoms ED EXAM, GENERAL - Physical Exam Exam: See Below Exam Limited By: No Limitations General Appearance: Alert, WD/WN, Mild Distress, Other (Patient is obviously hurting. He was offered analgesia but he declined. Temperature is 36.5 degrees. Heart rate is 92 and sinus. Respiratory is 18 with O2 sats of 96% room air. BP was 170/89.) Eye Exam: Bilateral Eye: Normal Inspection (No blepharal pallor or scleral icterus identified), PERRL Ears: Normal TMs Neck: Normal Inspection, Supple, Non-Tender, Full Range of Motion. No: Carotid Bruit, Lymphadenopathy (L), Lymphadenopathy (R) Respiratory/Chest: No Respiratory Distress, Lungs Clear, Normal Breath Sounds, No Accessory Muscle Use, Other Cardiovascular: Normal Peripheral Pulses (No pain on firm compression of his ribs.), Regular Rate, Rhythm, No Edema, No Gallop, No Murmur, No Rub Peripheral Pulses: 3+: Carotid (L), Carotid (R) GI/Abdominal: Normal Bowel Sounds, Soft, Non-Tender, No Organomegaly, No Distention, Pelvis Stable Back Exam: Normal Inspection, Full Range of Motion. No: CVA Tenderness (L), CVA Tenderness (R) Extremities: Limited Range of Motion, Other (Examination of the left upper extremity shows a an abrasion approximately 4 cm x 1.5 cm medial aspect of the lower arm. Examination of the right upper extremity reveals the humeral head appears to be more prominent than 1 would anticipate. He has a divot in the posterior aspect of his right should). No: Increased Warmth (Right shoulder.), Mottled Neurological: Alert, Oriented, CN II-XII Intact, Normal Cognition, Sensory/Motor Deficit Psychiatric: Normal Affect Skin Exam: Warm, Dry, Intact, Normal Color, No Rash Course - Vital Signs Last Recorded V/S: Last Vital Signs Temp 36.7 C 06/09/21 16:30 Pulse 89 06/09/21 16:30 Resp 16 06/09/21 16:30 BP 137/84 06/09/21 16:30 Pulse Ox 97 06/09/21 16:30 - Orders/Labs/Meds Orders: Active Orders 24 hr Category Date Time Status Durable Medical Equipment for Discharge [DME for Oth 06/09/21 17:27 Ordered Discharge] [COMM] Stat - Radiology Interpretation Free Text/Narrative:: 66-year-old male presents to the ED for evaluation of right shoulder pain. Patient got tripped up by his dog and dog toys earlier this morning which propelled him backwards into the piano striking his right shoulder against the piano and both hands caught him on the floor. He did not hit his head. He has had gradually worsening pain in the right shoulder over the last 12 to 16 hours. Patient can still raise the arm above his head with a great deal of pain and discomfort. It appears that the right shoulder was likely forcefully pushed anteriorly. Plan x-ray of the right shoulder to be done. - Re-Assessments/Exams Free Text/Narrative Re-Assessment/Exam: 06/09/21 17:25: X-ray of the right shoulder x3 views were obtained. Glenohumeral joint shows mild spurring. Inferior hook is noted off the acromium process. Mild joint space narrowing is seen within the acromioclavicular joint. Slight inferior spurring is also noted off the distal clavicle. No acute fracture or dislocation is seen. Patient reassured no fractures are identified. I agree that he has suffered ligamentous strain possible tear of the rotator cuff with possible anterior labral tear due to the nature of injury falling backwards against a piano and he is a large man. Plan will be to place him in a sling and swath for the next 2 to 3 weeks. He has a follow-up appoint with Dr. Grajeda orthopedic surgeon on June 29 for knee pain. It is hoped that he will also then steady his right shoulder and if he has not regained range of motion or still having significant pain then MRI of the shoulder will also be required. I did write a prescription for Percocet 5/325 mg strength 1 or 2 every 4-6 hours necessary for pain relief for the next 2 to 3 days and then Motrin only. Ice pack to the area 1/2-hour out of every 4 hours today and tomorrow. 06/09/21 17:355: Problems have been encountered trying to find a sling and swath large enough to fit this gentleman. Essentially we ended up putting him in a sling and 6 inch Mack wrap to provide the swath part of immobilization. Departure - Departure Time of Disposition: 17:22 Disposition: Home, Self-Care 01 Condition: Fair Clinical Impression: Right shoulder injury Qualifiers: Encounter type: initial encounter Qualified Code(s): S49.91XA - Unspecified injury of right shoulder and upper arm, initial encounter - Discharge Information *PRESCRIPTION DRUG MONITORING PROGRAM REVIEWED*: Not Applicable *COPY OF PRESCRIPTION DRUG MONITORING REPORT IN PATIENT PAZ: Not Applicable Prescriptions: oxyCODONE HCl/Acetaminophen [Percocet 5-325 mg Tablet] 1 - 2 each PO Q4H PRN #28 tablet PRN Reason: pain relief. Instructions: Shoulder Pain, [id number] Referrals: Ty Ponce MD [Primary Care Provider] - Forms: ED Department Discharge Additional Instructions: Evaluation in the emergency room tonight in regards to right shoulder pain after getting tripped up by the dog and dog toys and falling backwards against the piano with direct blow to the posterior aspect of your right shoulder early this morning. X-rays of the right shoulder do not reveal any broken bones and the shoulder is in normal alignment and position anatomically. However with the amount of pain you are experiencing and difficulty raising her arm above her head this suggest that there is been significant strain to the rotator cuff tendons that help hold this arm in the socket. This is called rotator cuff tear. Suggest treatment to be immobilization with shoulder immobilizer for the next 2 to 3 weeks. Motrin 600 mg every 6 hours to reduce pain and inflammation. Ice pack to the shoulder for 1/2-hour out of every 4 hours for the next day and a half. After that may apply heat to the area. You have an upcoming appointment to see Dr. Grajeda orthopedic surgeon in clinic on June 29 and tentatively he will look at your shoulder as well as your knee at that time. Pe rcocet tablets 5/325 mg strength 1 or 2 every 4-6 hours as necessary for pain relief. Note if you need quite a few of them in a day they will cause constipation you may need to start a stool softener such as MiraLAX powder 17 g once daily. Sepsis Event Note (ED) - Evaluation Sepsis Screening Result: No Definite Risk - Focused Exam Vital Signs: Vital Signs Temp Pulse Resp BP Pulse Ox 06/09/21 16:30 36.7 C 89 16 137/84 97 06/09/21 16:06 36.5 C 92 18 170/89 H 96 - My Orders Last 24 Hours: My Active Orders 06/09/21 17:27 Durable Medical Equipment for Discharge [DME for Discharge] [COMM] Stat - Assessment/Plan Last 24 Hours: My Active Orders 06/09/21 17:27 Durable Medical Equipment for Discharge [DME for Discharge] [COMM] Stat
--- NOTE | 2021-06-09 20:10 | CR ---
Right shoulder: 3 views of the right shoulder were obtained. Comparison: No prior shoulder study is available. Glenohumeral joint shows mild spurring. Inferior hook is noted off the acromion process. Mild joint space narrowing is seen within the acromioclavicular joint. Slight inferior spurring is also noted of the distal clavicle. No acute fracture or dislocation is seen. Impression: 1. Degenerative change as noted above. 2. Nothing acute is seen on right shoulder study. Diagnostic code #2
== END 2021-06-09 18:00 | disposition home or self-care (01) ==
LOC: JD.ED 15:46
DX: S40.211A Abrasion of right shoulder, initial encounter (principal); I25.2 Old myocardial infarction; I10 Essential (primary) hypertension; M10.9 Gout, unspecified; E66.9 Obesity, unspecified; Z88.0 Allergy status to penicillin; Z68.41 Body mass index [BMI] 40.0-44.9, adult; Z79.899 Other long term (current) drug therapy; W54.8XXA Other contact with dog, initial encounter
CPT/HCPCS: 73030-26-RT; 73030-RT; 99283; 99283-25

== ENCOUNTER → 2021-08-05 | Day surgery (SDC) | payer BC ==
--- NOTE | 2021-08-04 09:38 | PCM.PREANE ---
Preanesthetic Assessment - Procedure Proposed Procedure: Right SVA with Rotator Cuff Repair and Subacromial Decompression - Anesthesia/Transfusion/Family Hx Anesthesia History: Prior Anesthesia Without Reaction Family History of Anesthesia Reaction: No Transfusion History: No Prior Transfusion(s) Intubation History: Unknown - Review of Systems General: No Symptoms Pulmonary: No Symptoms (Sleep Study:?SAMUEL: Decreased FRC in 50% of lung capacity: COPD: Restrictive lung disease and Obstructive(empysema) ETOH: occasionally) Cardiovascular: No Symptoms (?CHF: lasix- HTN, history of VT, Historyof atrial flutter with ablation done April 2021 with history of two ablations total first (2013), CAD, elevated lipids), Dyspnea on Exertion, Edema (History of decreased potassium with lasix for treatment of lower extremity edema: none today) Gastrointestinal: No Symptoms Neurological: No Symptoms (History of vertigo twenty years ago/chronic lower back pain: 12/30.), Numbness (paresthesia legs: bilateral thighs "feels like I'm gettinig stabbed in my thights.") Other: Reports: None, Diabetes (am Blood sugar:) - Physical Assessment NPO Status Date: 08/04/21 NPO Status Time: 23:00 Vital Signs: HR: 86 Sat: 98% Temp: 97.1 B/P: 129/86 Resp: 20 Height: 1.83 m Weight: 129 kg ASA Class: 3 Mental Status: Alert & Oriented x3 Airway Class: Mallampati = 2 Dentition: Reports: Normal Dentition (lower back right implant) Thyro-Mental Finger Breadths: 3 Mouth Opening Finger Breadths: 3 ROM/Head Extension: Full Lungs: Clear to Auscultation, Normal Respiratory Effort Cardiovascular: Regular Rate, Regular Rhythm, No Murmurs - Lab Values: All labs reviewed and noted and within acceptable ranges to proceed with scheduled procedure. - Imaging/EKG Impressions: EKG: SR rate=77 CXR: negative Echocardiogram: EF= 60-65% with mild concentric LVH - Allergies Allergies/Adverse Reactions: Allergies Allergy/AdvReac Type Severity Reaction Status Date / Time Penicillins Allergy Severe Rash, Verified 08/05/21 09:51 flushed, hot azithromycin [From Zithromax] Allergy Rash, Verified 08/05/21 09:51 flushed, hot clarithromycin [From Biaxin] Allergy Rash, Verified 08/05/21 09:51 flushed, hot erythromycin base Allergy Rash, Verified 08/05/21 09:51 flushed, hot - Anesthesia Plan Pre-Op Medication Ordered: None - Acknowledgements Anesthesia Type Planned: General Anesthesia (Right ISB under US guidance for post operative pain control requested by Dr. Grajeda.) Pt an Appropriate Candidate for the Planned Anesthesia: Yes Alternatives and Risks of Anesthesia Discussed w Pt/Guardian: Yes Pt/Guardian Understands and Agrees with Anesthesia Plan: Yes PreAnesthesia Questionnaire HEENT History: Reports: Impaired Vision Other HEENT History: wears glasses Cardiovascular History: Reports: Arrhythmia, Hypertension, VT Other Cardiovascular History: ablation, atrial flutter Respiratory History: Reports: Bronchitis, Recurrent, Pneumonia, Recurrent Other Respiratory History: 50% lung capacity Genitourinary History: Reports: BPH, Renal Calculus, Other (See Below) (Patient appreciated passing some kidney stones this morning with minimal to no discomfort.) Musculoskeletal History: Reports: Back Pain, Chronic, Gout Endocrine/Metabolic History: Reports: Obesity/BMI 30+, Other (See Below) Other Endocrine/Metabolic History: borderline diabetes - Infectious Disease History Infectious Disease History: Reports: Chicken Pox, Measles, Mumps - Past Surgical History Cardiovascular Surgical History: Reports: Cardiac Ablation - HOME MEDS Home Medications: Home Meds Rosuvastatin Calcium [Crestor] 5 mg PO DAILY 05/05/20 [History] Furosemide [Lasix] 20 mg PO Q48H 05/07/21 [History] Losartan [Cozaar] 25 mg PO DAILY 05/07/21 [History] Potassium Chloride 10 mg PO DAILY 05/07/21 [History] Cyclobenzaprine [Flexeril] 10 mg PO BID PRN #20 tab 08/04/21 [Rx] Semaglutide [Ozempic] 2 mg SQ Q7D 08/04/21 [History] allopurinoL [Zyloprim] 100 mg PO DAILY 08/04/21 [History] oxyCODONE 5 - 10 mg PO Q4H PRN #30 tab 08/04/21 [Rx] oxyCODONE HCl/Acetaminophen [Oxycodone-Acetaminophen 5-325] 1 - 2 tab PO Q6H PRN 08/04/21 [History] - CURRENT (IN HOUSE) MEDS Current Meds: Current Medications Lactated Ringer's (Ringers, Lactated) 1,000 mls @ 125 mls/hr IV ASDIRECTED ALEKSANDRA Stop: 08/05/21 23:00 Lidocaine/Sodium Bicarbonate (Lidocaine 1%/Sod Bicarbonate In Ns 8.4% 1 Ml Syringe) 0.25 ml IDERM ONETIME PRN PRN Reason: Prior to IV Start Stop: 08/05/21 18:00 Sodium Chloride (Sodium Chloride 0.9% 10 Ml Syringe) 10 ml FLUSH ASDIRECTED PRN PRN Reason: Keep Vein Open Stop: 08/05/21 18:00
--- NOTE | 2021-08-04 09:57 | PCM.SN.2 ---
- Free Text/Narrative Note: Anesthesia Note Time Out: Start: Stop: Current Procedure: Right interscalene block under US guidance for postoperative pain control requested by Dr. Grajeda. Patient chart reviewed, risk/benefits discussed with patient, consent obtained. Patient positioned supine, monitors/alarms on, oxygen placed via nasal cannula at 2 LPM. IV sedation administered: Versed 2mg IV, Fentanyl 50mcg IV given in preop prior to block placement. Right shoulder prepped with two chloropreps. Sterile drapes placed with aseptic technique noted. Under US guidance, right subclavian artery visualized along with the right brachial plexus. Plexus followed up to C6 cricoid level, and area localized with 2mls of 1% lidocaine. 22gauge 2 inch stimiplex needle advanced under US with 0.6mV with stimulation of biceps noted. Good stimulation noted with decreased voltage and absent at 0.3mVs. 1ml of Normal Saline injected with loss of stimulation noted to confirm needle not placed intraneurally. Incremental dosing of 5mls with negative aspiration noted prior to each injection of 0.5% ropivacaine with 1:200,000 epinephrine. Total volume=30mls. Please refer to nurses noted for vital signs. Dawn Pineda CRNA Time Documentation
[~2021-08-05] MED LIST: Clindamycin Phosphate in D5W 900 MG in Premix Bag 1 BAG IV SCH; Cyclobenzaprine 10 MG Tab PO PRN; EPINEPHrine 1 MG/ML 30 ML MDV IRR SCH; EPINEPHrine 1 MG/ML SDV ONE; Lactated Ringers 1,000 ML IV SCH; Lidocaine 1% 0 ML ONE; Lidocaine 1%/Sod Bicarbonate in NS 8.4% 1 ML Syringe IDERM PRN; Ropivacaine 0.5% 5 MG/ML 30 ML SDV ONE; Sodium Chloride 0.9% 10 ML Syringe FLUSH PRN; oxyCODONE 5 MG Tab PO PRN
--- NOTE | 2021-08-06 10:50 | PCM.SN.2 ---
Time Documentation #1 Interpretation EKG Date: 08/05/21 Rhythm: A-Flutter Rate (Beats/Min): 51 (Atrial rate approximately 280) [place]: Normal P-Wave: Absent (Flutter waves present 5:1) ST-T: Other (Subtle ST activity could be missed with the flutter waves) QT: Normal Comparison: Change From Previous EKG (Last EKG done on 07/30 of this year shows sinus rhythm) EKG Interpretation Comments: Abnormal EKG with significant change from prior EKG done last week
== END | disposition home or self-care (01) ==
LOC: JD.SDS 09:04
PROVIDERS: ATTEND Orthopaedic Surgery
DX: M75.101 Unspecified rotator cuff tear or rupture of right shoulder, not specified as traumatic (principal); Z53.09 Procedure and treatment not carried out because of other contraindication
CPT/HCPCS: 82947; J3490; J7120; J0171; J2795

== ENCOUNTER → 2022-01-13 | Day surgery (SDC) | payer BC ==
[~2022-01-13] MED LIST changes: +Acetaminophen/HYDROcodone 325-5 MG Tab PO PRN; +Clindamycin Phosphate in D5W 900 MG in Premix Bag 1 BAG IV ONE; -Clindamycin Phosphate in D5W 900 MG in Premix Bag 1 BAG IV SCH; -Cyclobenzaprine 10 MG Tab PO PRN; +Dexamethasone 4 MG/ML 5 ML MDV ONE; -EPINEPHrine 1 MG/ML 30 ML MDV IRR SCH; +HYDROmorphone 0.5 MG/0.5 ML Syringe IVPUSH PRN; +HYDROmorphone 0.5 MG/0.5 ML Syringe ONE; +Ketamine 500 mg/10 ML MDV ONE; +Ketorolac 30 MG/ML SDV ONE; +Lactated Ringers 1,000 ML ONE; -Lidocaine 1% 0 ML ONE; +Lidocaine 1% 4 ML ONE; +Midazolam 1 MG/ML 2 ML SDV ONE; +Ondansetron 4 MG/2 ML SDV IVPUSH PRN; +Ondansetron 4 MG/2 ML SDV ONE; +Propofol 200 MG/20 ML SDV ONE; +Rocuronium 50 MG/5 ML Vial ONE; +Sodium Chloride 0.9% 10 ML Syringe FLUSH SCH; +Succinylcholine/Sod PF 100 MG/5 ML SYRINGE IV ONE; +ePHEDrine 50 MG/ML SDV ONE; +fentaNYL 250 MCG/5 ML SDV ONE; -oxyCODONE 5 MG Tab PO PRN
[2022-01-13] MEDS: Bupivacaine 0.25% 10 ML SDV ONE ×2 (12:15→17:13)
[2022-01-13] MEDS: EPINEPHrine 1 MG/ML 30 ML MDV IRR SCH ×2 (12:15→17:12)
[2022-01-13] MEDS: fentaNYL 100 MCG/2 ML SDV IVPUSH PRN ×2 (13:44→13:58)
== END | disposition home or self-care (01) ==
LOC: JD.SDS 10:22
PROVIDERS: ATTEND Orthopaedic Surgery
DX: M75.101 Unspecified rotator cuff tear or rupture of right shoulder, not specified as traumatic (principal); M25.811 Other specified joint disorders, right shoulder; M75.21 Bicipital tendinitis, right shoulder; I25.10 Atherosclerotic heart disease of native coronary artery without angina pectoris; J44.9 Chronic obstructive pulmonary disease, unspecified; I25.2 Old myocardial infarction; I10 Essential (primary) hypertension; E78.5 Hyperlipidemia, unspecified; E11.9 Type 2 diabetes mellitus without complications; E66.9 Obesity, unspecified; Z88.0 Allergy status to penicillin; Z79.899 Other long term (current) drug therapy; Z98.890 Other specified postprocedural states; Z88.8 Allergy status to other drugs, medicaments and biological substances; Z68.41 Body mass index [BMI] 40.0-44.9, adult
CPT/HCPCS: 29826; 29827; 82947; A9270; C1713; J0171; J1100; J1170; J1885; J2250; J2370; J2405; J2704; J3010; J3490; J7120; 01630; J0330; J2795

== ENCOUNTER 2023-01-09 08:40 | Day surgery (SDC) | payer BC ==
[~2023-01-09 08:40] MED LIST changes: +Acetaminophen 325 MG Tab PO SCH; -Acetaminophen/HYDROcodone 325-5 MG Tab PO PRN; -Clindamycin Phosphate in D5W 900 MG in Premix Bag 1 BAG IV ONE; -Dexamethasone 4 MG/ML 5 ML MDV ONE; -EPINEPHrine 1 MG/ML SDV ONE; -HYDROmorphone 0.5 MG/0.5 ML Syringe IVPUSH PRN; -HYDROmorphone 0.5 MG/0.5 ML Syringe ONE; -Ketamine 500 mg/10 ML MDV ONE; -Ketorolac 30 MG/ML SDV ONE; -Lactated Ringers 1,000 ML ONE; -Lidocaine 1% 4 ML ONE; -Midazolam 1 MG/ML 2 ML SDV ONE; +Morphine 8 MG, EPINEPHrine 0.3 MG, Cefuroxime 750 MG, Ketorolac 30 MG, Sodium Chloride ... PRN; -Ondansetron 4 MG/2 ML SDV IVPUSH PRN; -Ondansetron 4 MG/2 ML SDV ONE; +Pregabalin 25 MG Cap PO SCH; -Propofol 200 MG/20 ML SDV ONE; -Rocuronium 50 MG/5 ML Vial ONE; -Ropivacaine 0.5% 5 MG/ML 30 ML SDV ONE; -Succinylcholine/Sod PF 100 MG/5 ML SYRINGE IV ONE; -ePHEDrine 50 MG/ML SDV ONE; -fentaNYL 250 MCG/5 ML SDV ONE; +oxyCODONE ER 10 MG TAB.ER PO SCH
[2023-01-09] MEDS ORDERED: Tranexamic Acid 1,000 MG/10 ML Vial ONE (09:00)
[2023-01-09] MEDS ORDERED: Vancomycin 1 GM SDV ONE (09:00)
[2023-01-09] MEDS ORDERED: VANCOmycin 2 GM/400 ML 2 GM in Premix Bag 1 BAG IV ONE (09:00)
[2023-01-09] MEDS ORDERED: Bupivacaine 0.25% 10 ML SDV ONE (09:04)
[2023-01-09] MEDS ORDERED: Midazolam 1 MG/ML 2 ML SDV ONE (09:04)
[2023-01-09] MEDS ORDERED: Triamcinolone Acetonide 40 MG/ML 1 ML SDV ONE (09:04)
[2023-01-09] MEDS ORDERED: fentaNYL 100 MCG/2 ML SDV ONE (09:05)
[2023-01-09] MEDS ORDERED: Lidocaine 1% 2 ML ONE (09:05)
[2023-01-09] MEDS ORDERED: Propofol 200 MG/20 ML SDV ONE ×3 (09:05→11:18)
[2023-01-09] MEDS ORDERED: Ropivacaine 0.5% 5 MG/ML 30 ML SDV ONE (09:12)
[2023-01-09] MEDS ORDERED: Ondansetron 4 MG/2 ML SDV IVPUSH PRN (09:24)
[2023-01-09] MEDS ORDERED: HYDROmorphone 0.5 MG/0.5 ML Syringe IVPUSH PRN (09:24)
[2023-01-09] MEDS ORDERED: fentaNYL 100 MCG/2 ML SDV IVPUSH PRN (09:24)
[2023-01-09] MEDS ORDERED: EPINEPHrine 1 MG/ML SDV ONE (09:42)
[2023-01-09] MEDS ORDERED: Phenylephrine 1% 10 MG/ML SDV ONE (10:30)
[2023-01-09] MEDS ORDERED: ePHEDrine 50 MG/ML SDV ONE (11:18)
[2023-01-09] MEDS ORDERED: oxyCODONE 5 MG Tab PO PRN (11:55)
[2023-01-09] MEDS ORDERED: Cyclobenzaprine 10 MG Tab PO PRN (11:55)
== END 2023-01-09 16:25 | disposition home or self-care (01) ==
LOC: JD.SDS 08:40
PROVIDERS: ATTEND Orthopaedic Surgery
DX: M17.0 Bilateral primary osteoarthritis of knee (principal); G89.29 Other chronic pain; I25.10 Atherosclerotic heart disease of native coronary artery without angina pectoris; I25.2 Old myocardial infarction; J44.1 Chronic obstructive pulmonary disease with (acute) exacerbation; E78.5 Hyperlipidemia, unspecified; I10 Essential (primary) hypertension; E11.9 Type 2 diabetes mellitus without complications; E66.01 Morbid (severe) obesity due to excess calories; Z79.82 Long term (current) use of aspirin; Z79.899 Other long term (current) drug therapy; Z88.0 Allergy status to penicillin; Z88.1 Allergy status to other antibiotic agents; Z68.41 Body mass index [BMI] 40.0-44.9, adult
CPT/HCPCS: 0055T; 20610; 27447; 64447; 73560; 97110; 97116; 97161; A9270; C1713; C1776; J0171; J0697; J1885; J2250; J2270; J2370; J2704; J2795; J3010; J3301; J3370; J3490; J7120; 01402

== ENCOUNTER 2023-04-15 11:44 | Emergency (ER) | payer BC ==
[2023-04-15] MEDS ORDERED: Tamsulosin 0.4 MG Cap.ER PO ONE (12:03)
[2023-04-15] MEDS ORDERED: HYDROmorphone 1 MG/ML Syringe IVPUSH ONE ×2 (12:03→13:48)
[2023-04-15] MEDS ORDERED: Sodium Chloride 0.9% 1,000 ML IV ONE (12:03)
[2023-04-15] MEDS ORDERED: Ondansetron 4 MG/2 ML SDV IVPUSH ONE (12:03)
[2023-04-15 12:26] LABS: BASOPHILS ABSOLUTE AUTO 0.02 K/mm3 (0.01-0.08); BASOPHILS PERCENT AUTO 0.3 % (0.1-1.2); EOSINOPHILS ABSOLUTE AUTO 0.19 K/mm3 (0.04-0.54); EOSINOPHILS PERCENT AUTO 2.8 (0.8-7.0); HEMATOCRIT 44.8 % (40.1-51.0); IMMATURE GRAN ABSOLUTE AUTO 0.01 K/mm3 (0.00-0.10); IMMATURE GRAN PERCENT AUTO 0.1 % (<=1.0); LYMPHOCYTES ABSOLUTE AUTO 1.41 K/mm3 (1.32-3.57); LYMPHOCYTES PERCENT AUTO 20.6 % (21.8-53.1); MEAN CORPUSCULAR HEMOGLOBIN 31.8 pg (25.7-32.2); MEAN CORPUSCULAR HGB CONC 33.5 g/dl (32.2-35.5); MEAN CORPUSCULAR VOLUME 95.1 fl (79.0-92.2); MEAN PLATELET VOLUME 9.6 fl (9.4-12.3); MONOCYTES ABSOLUTE AUTO 0.88 K/mm3 (0.30-0.82); MONOCYTES PERCENT AUTO 12.8 % (5.3-12.2); NEUTROPHILS ABSOLUTE AUTO 4.35 K/mm3 (1.78-5.38); NEUTROPHILS PERCENT AUTO 63.4 % (34.0-67.9); PLATELET COUNT,PLT 298 K/mm3 (163-337); RED BLOOD CELL COUNT 4.71 M/mm3 (4.63-6.08); WHITE BLOOD CELL COUNT,WBC 6.86 K/mm3 (4.23-9.07)
[2023-04-15 12:47] LABS: ALANINE AMINOTRANSFERASE,ALT 33 U/L (16-63); ALBUMIN 3.7 g/dl (3.4-5.0); ALKALINE PHOSPHATASE 66 U/L (46-116); ANION GAP 15.8 (5-15); ASPARTATE AMNIOTRANSFERASE,AST 25 U/L (15-37); BILIRUBIN TOTAL 0.5 mg/dL (0.2-1.0); BLOOD UREA NITROGEN,BUN 12 mg/dL (7-18); BUN/CREATININE RATIO 10.9 (14-18); CALCIUM 8.6 mg/dL (8.5-10.1); CARBON DIOXIDE,CO2 23 mEq/L (21-32); CHLORIDE,CL 103 mEq/L (98-107); CREATININE 1.1 mg/dL (0.7-1.3); ESTIMATED GFR 74 mL/min (>60); GLUCOSE RANDOM 128 mg/dL (70-99); POTASSIUM,K 3.8 mEq/L (3.5-5.1); PROTEIN TOTAL,TP 7.5 g/dl (6.4-8.2); SODIUM,NA 138 mEq/L (136-145)
[2023-04-15 13:49] LABS: APPEARANCE,URINE CLOUDY (Clear); BILIRUBIN,URINE 1+ (Negative); COLOR,URINE BROWN (Yellow); GLUCOSE,URINE NEGATIVE (Negative); KETONES,URINE 1+ (Negative); LEUKOCYTE ESTERASE,URINE NEGATIVE (Negative); NITRITE,URINE NEGATIVE (Negative); OCCULT BLOOD,URINE 3+ (Negative); PH,URINE 6.5 (5.0-8.0); PROTEIN,URINE 3+ (Negative); UROBILINOGEN,URINE 0.2 (0.2-1.0)
[2023-04-15 14:12] LABS: RBC,URINE TOO NUMEROUS TO CNT /hpf (0-5); SQUAMOUS EPITHELIAL CELLS,UR 0-5 /hpf (0-5); WBC,URINE 0-5 /hpf (0-5)
[2023-04-15 14:13] LABS: BACTERIA,URINE MODERATE /hpf (FEW); CALCIUM OXALATE CRYSTALS,URINE FEW; MUCUS,URINE FEW /hpf (FEW)
[2023-04-15] MEDS ORDERED: Ketorolac 30 MG/ML SDV IVPUSH ONE (14:43)
== END 2023-04-15 15:12 | disposition home or self-care (01) ==
LOC: JD.ED 11:44
DX: N20.1 Calculus of ureter (principal); I10 Essential (primary) hypertension; J44.9 Chronic obstructive pulmonary disease, unspecified; I25.2 Old myocardial infarction; E66.9 Obesity, unspecified; Z68.30 Body mass index [BMI] 30.0-30.9, adult; Z88.0 Allergy status to penicillin; Z88.1 Allergy status to other antibiotic agents; Z88.8 Allergy status to other drugs, medicaments and biological substances; Z79.82 Long term (current) use of aspirin; Z79.899 Other long term (current) drug therapy
CPT/HCPCS: 36415; 74176; 80053; 81001; 85025; 96374; 96375; 96376; 99284; A9270; J1170; J1885; J2405; J7030

== ENCOUNTER 2024-01-22 10:08 | Emergency (ER) | payer BC ==
[2024-01-22 11:04] LABS: BASOPHILS PERCENT AUTO 0.1 % (0.0-1.0); EOSINOPHILS PERCENT AUTO 0.2 % (0.0-6.0); HEMATOCRIT 42.7 % (42.0-52.0); HEMOGLOBIN 14.2 gm/dl (14.0-18.0); IMMATURE GRAN ABSOLUTE AUTO 0.05 K/mm3 (0.00-0.05); IMMATURE GRAN PERCENT AUTO 0.5 % (0.0-0.4); LYMPHOCYTES ABSOLUTE AUTO 0.4 K/mm3 (1.0-4.8); LYMPHOCYTES PERCENT AUTO 3.8 % (24.0-44.0); MEAN CORPUSCULAR HEMOGLOBIN 31.3 pg (28.0-32.0); MEAN CORPUSCULAR HGB CONC 33.3 g/dl (32.0-36.0); MEAN CORPUSCULAR VOLUME 94.1 fl (83.0-99.0); MONOCYTES ABSOLUTE AUTO 0.5 K/mm3 (0.0-0.8); MONOCYTES PERCENT AUTO 4.7 % (0.0-8.0); NEUTROPHILS ABSOLUTE AUTO 8.9 K/mm3 (1.8-7.7); NEUTROPHILS PERCENT AUTO 90.7 % (41.0-71.0); PLATELET COUNT,PLT 181 K/mm3 (150-400); RED BLOOD CELL COUNT 4.54 M/mm3 (4.52-5.90); WHITE BLOOD CELL COUNT,WBC 9.76 K/mm3 (3.9-11.3)
[2024-01-22] MEDS: Iopamidol 755 Mg/ML 100 ML Bottle IVPUSH ONE (11:06)
[2024-01-22] MEDS: Sodium Chloride 0.9% 10 ML Syringe FLUSH PRN (11:16)
[2024-01-22] MEDS: Sodium Chloride 0.9% 45 ML IV SCH (11:17)
[2024-01-22] MEDS: Sodium Chloride 0.9% 1,000 ML IV SCH (11:22)
[2024-01-22 11:23] LABS: HEMOGLOBIN A1C 5.4 %
[2024-01-22 11:25] LABS: INR 1.02; PROTHROMBIN TIME 10.9 SECONDS (9.7-12.0)
[2024-01-22 11:27] LABS: PTT,PARTIAL THROMBOPLSTIN TIME 28.9 SECONDS (21.7-31.4)
[2024-01-22 11:28] LABS: A/G RATIO 1.1 (1-2); ALBUMIN 3.8 g/dl (3.4-5.0); ANION GAP 13.6 (5-15); BILIRUBIN TOTAL 0.9 mg/dL (0.2-1.0); C-REACTIVE PROTEIN 0.78 mg/dL (<0.30); CALCIUM 8.7 mg/dL (8.5-10.1); EST CRCL DRUG DOSING (CG) 79.76 mL/min; MAGNESIUM 1.8 mg/dL (1.8-2.4); PROTEIN TOTAL,TP 7.2 g/dl (6.4-8.2)
[2024-01-22 11:29] LABS: POTASSIUM,K 4.6 mEq/L (3.5-5.1)
== END 2024-01-22 13:37 | disposition home or self-care (01) ==
LOC: JD.ED 10:08
DX: J01.40 Acute pansinusitis, unspecified (principal); H81.10 Benign paroxysmal vertigo, unspecified ear; M45.0 Ankylosing spondylitis of multiple sites in spine; R41.0 Disorientation, unspecified; F51.12 Insufficient sleep syndrome; I10 Essential (primary) hypertension; I25.2 Old myocardial infarction; E11.9 Type 2 diabetes mellitus without complications; E66.9 Obesity, unspecified; Z68.36 Body mass index [BMI] 36.0-36.9, adult; Z88.0 Allergy status to penicillin; Z88.1 Allergy status to other antibiotic agents; Z56.6 Other physical and mental strain related to work; Z79.82 Long term (current) use of aspirin; Z79.899 Other long term (current) drug therapy
CPT/HCPCS: 36415; 70450; 70496; 70498; 71045; 80053; 80061; 80307; 82947; 83036; 83735; 83880; 84484; 85025; 85610; 85730; 86140; 93005; 96360; 96361; 99285; J3490; J7030; Q9967; 93010; 99284